=== PATIENT | male | born 1970 | race Caucasian/White ===

== ENCOUNTER 2019-11-23 13:26 | Emergency (ER) | payer BC, OTHER ==
[2019-11-23] MEDS ORDERED: Sodium Chloride 0.9% 2.5 ML Syringe FLUSH PRN (13:36)
[2019-11-23] MEDS ORDERED: Sodium Chloride 0.9% 10 ML Syringe FLUSH PRN (13:36)
[2019-11-23] MEDS ORDERED: Aspirin 81 MG Tab.Chew PO ONE (13:37)
--- NOTE | 2019-11-23 13:47 | EDM.PDOC ---
ED HPI GENERAL MEDICAL PROBLEM - General Chief Complaint: Chest Pain Stated Complaint: CHEST PAIN Time Seen by Provider: 11/23/19 13:36 - History of Present Illness INITIAL COMMENTS - FREE TEXT/NARRATIVE: History of present illness: 49-year-old male presenting with substernal chest pressure/discomfort and dyspnea 30 minutes prior to arrival. The patient was at rest, talking to his boss when he suddenly developed chest pain. No recent illness. No cough or fever. No leg pain or swelling. He has had some throat discomfort though no tightness or narrowing. He does report that he had to do a fasting overnight for a blood draw and then shortly before the symptoms started he had just eaten a sandwich and had something to drink. He had eaten all of those foods before and has never had any kind of reaction to it. Review of systems: As per history of present illness and below otherwise all systems reviewed and negative. Past medical history: As per history of present illness and as reviewed below otherwise noncontr ibutory. Type 2 diabetes. 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 Surgical history: As per history of present illness and as reviewed below otherwise noncontributory. Social history: No reported history of drug or alcohol abuse. No tobacco Family history: As per history of present illness and as reviewed below otherwise noncontributory. Physical exam: GEN: Mild to moderate distress due to pain, otherwise well appearing HEENT: Atraumatic, normocephalic, mucous membranes moist, no signs of airway compromise. Neck: supple, nontender, trachea midline. Lungs: No respiratory distress. Lungs are clear to auscultation bilaterally, no wheezes, rales or rhonchi Heart: RRR Abdomen: Soft, nondistended, nontender. Back: nontender Extremities: Atraumatic. Neurovascularly intact. No calf tenderness Neuro: Awake, alert, oriented. Neuro Exam nonfocal. Skin: warm, dry, no lesions Diagnostics: Labs, chest x-ray, EKG, CT scan Therapeutics: Aspirin MDM: Impression: [] Plan: [] Definitive disposition and diagnosis as appropriate pending reevaluation and review of above. - Related Data Allergies Allergy/AdvReac Type Severity Reaction Status Date / Time naproxen sodium [From Aleve] Allergy Hives Verified 11/23/19 13:48 Home Meds: Home Meds Lisinopril 1 tab PO BID 08/24/13 [History] metFORMIN [metFORMIN XR] 500 mg PO BIDM 08/24/13 [History] metFORMIN [Glucophage] 500 mg PO BID 03/12/15 [History] glipiZIDE [Glucotrol] 5 mg PO BID 08/17/15 [History] Non-Formulary Medication [NF Drug] 1 each PO DAILY 11/23/19 [History] Past Medical History HEENT History: Reports: None Cardiovascular History: Reports: Heart Failure, Hypertension Other Cardiovascular History: chf Respiratory History: Reports: None Gastrointestinal History: Reports: None Genitourinary History: Reports: None Musculoskeletal History: Reports: RA Neurological History: Reports: None Psychiatric History: Reports: None Endocrine/Metabolic History: Reports: Diabetes, Type II Hematologic History: Reports: None Other Immunologic History: rheumatoid arthritis Oncologic (Cancer) History: Reports: None Dermatologic History: Reports: None Other Dermatologic History: abcess neck - Past Surgical History Head Surgeries/Procedures: Reports: None HEENT Surgical History: Reports: None Cardiovascular Surgical History: Reports: None Respiratory Surgical History: Reports: None GI Surgical History: Reports: None Male Surgical History: Reports: None Neurological Surgical History: Reports: None Musculoskeletal Surgical History: Reports: None Dermatological Surgical History: Reports: None Social & Family History - Family History Family Medical History: Noncontributory ED ROS GENERAL - Review of Systems Review Of Systems: See Below (See HPI) ED EXAM, GENERAL - Physical Exam Exam: See Below (See HPI) EKG INTERPRETATION EKG Interpretation Comments: EKG performed at 1:28 PM, sinus rhythm, rate 74, abnormal R wave progression, very slight ST prominence over the inferior leads, less than 1 mm. EKG will be repeated. No STEMI. Repeat EKG at 1:34 PM, sinus rhythm, rate 69, unchanged early R wave progression, no ST prominence at this time. No STEMI. EKG performed after positive troponin resulted. Repeat EKG at 4:44 PM, sinus rhythm, rate 83, left atrial enlargement, no acute ischemia, no STEMI. Interpreted by me. Course - Vital Signs Text/Narrative:: Chest pain and dyspnea. Sudden onset just prior to arrival here. Will check labs, chest x-ray and troponin. Patient is a type II diabetic with cardiac risk factors. Heart score 5 Also has CML and currently on oral chemotherapy. 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 CT angio of the chest was ordered. Due to patient's symptoms and severity of presentation. EKG was performed on arrival and a repeat performed. No change. CT angios chest shows no pulmonary embolism or thoracic dissection or aneurysm. Patient's pain improved in the emergency department after aspirin and morphine administration. He did develop headache and some worsening again of his pain after nitro glycerin was given, therefore additional morphine will be given. However he is in no acute distress. Repeat troponin came back elevated at 0.335. Repeat EKG was performed which is unchanged from the prior 2 EKGs and shows no ischemic change or STEMI. Based on trending upward troponin, the patient will need to be transferred to a facility that has cardiology on-call and interventional cardiology capabilities. Therefore will be transferred to [facility], case discussed with ER physician who accepts. Last Recorded V/S: Last Vital Signs Temp Pulse 69 11/23/19 17:01 Resp 18 11/23/19 17:01 BP 133/76 11/23/19 17:01 Pulse Ox 94 L 11/23/19 17:01 - Orders/Labs/Meds Orders: Active Orders 24 hr Category Date Time Status Cardiac Monitoring [RC] . DIRECTED Care 11/23/19 13:36 Active EKG 12 Lead [EKG Documentation Completion] [RC] STAT Care 11/23/19 15:27 Active EKG Documentation Completion [RC] STAT Care 11/23/19 13:36 Active Nitroglycerin [Nitrostat] Med 11/23/19 15:27 Active 0.4 mg SL Q5M PRN Sodium Chloride 0.9% [Saline Flush] Med 11/23/19 13:36 Active 10 ml FLUSH ASDIRECTED PRN Sodium Chloride 0.9% [Saline Flush] Med 11/23/19 13:36 Active 2.5 ml FLUSH ASDIRECTED PRN Saline Lock Insert [OM.PC] Stat Oth 11/23/19 13:36 Ordered Medication Orders Nitroglycerin (Nitrostat) 0.4 mg SL Q5M PRN PRN Reason: Chest Pain Last Admin: 11/23/19 16:33 Dose: 0.4 mg Documented by: ESTRELLITA Sodium Chloride (Saline Flush) 10 ml FLUSH ASDIRECTED PRN PRN Reason: Keep Vein Open Sodium Chloride (Saline Flush) 2.5 ml FLUSH ASDIRECTED PRN PRN Reason: Keep Vein Open Labs: Laboratory Tests 11/23/19 11/23/19 11/23/19 Range/Units 13:34 13:34 13:34 WBC 11.31 H (4.0-11.0) K/uL RBC 5.97 H (4.50-5.90) M/uL Hgb 16.5 (13.0-17.0) g/dL Hct 48.7 (38.0-50.0) % MCV 81.6 (80.0-98.0) fL MCH 27.6 (27.0-32.0) pg MCHC 33.9 (31.0-37.0) g/dL RDW Std Deviation 41.5 (28.0-62.0) fl RDW Coeff of Wily 14 (11.0-15.0) % Plt Count 218 (150-400) K/uL MPV 10.40 (7.40-12.00) fL Neut % (Auto) 69.9 (48.0-80.0) % Lymph % (Auto) 20.6 (16.0-40.0) % [place] % (Auto) 6.5 (0.0-15.0) % Eos % (Auto) 2.2 (0.0-7.0) % Baso % (Auto) 0.8 (0.0-1.5) % Neut # (Auto) 7.9 H (1.4-5.7) K/uL Lymph # (Auto) 2.3 (0.6-2.4) K/uL [place] # (Auto) 0.7 (0.0-0.8) K/uL Eos # (Auto) 0.3 (0.0-0.7) K/uL Baso # (Auto) 0.1 (0.0-0.1) K/uL Nucleated RBC % 0.0 /100WBC Nucleated RBCs # 0 K/uL Sodium 136 (136-148) mmol/L Potassium 4.2 (3.5-5.1) mmol/L Chloride 99 (98-107) mmol/L Carbon Dioxide 27.2 (21.0-32.0) mmol/L BUN 17 (7.0-18.0) mg/dL Creatinine 1.1 (0.8-1.3) mg/dL Est Cr Clr Drug Dosing 102.38 mL/min Estimated GFR (MDRD) > 60.0 ml/min Glucose 419 H (74-106) mg/dL Calcium 9.6 (8.5-10.1) mg/dL Total Bilirubin 0.9 (0.2-1.0) mg/dL AST 40 H (15-37) IU/L ALT 70 H (14-63) IU/L Alkaline Phosphatase 110 (46-116) U/L Troponin I < 0.050 (0.000-0.056) ng/mL B-Natriuretic Peptide 31 (<100) PG/ML Total Protein 8.8 H (6.4-8.2) g/dL Albumin 4.2 (3.4-5.0) g/dL Globulin 4.6 H (2.6-4.0) g/dL Albumin/Globulin Ratio 0.9 (0.9-1.6) Lipase 217 (73-393) U/L SARS Virus RNA (PCR) (NEGATIVE) 11/23/19 11/23/19 Range/Units 15:56 16:32 WBC (4.0-11.0) K/uL RBC (4.50-5.90) M/uL Hgb (13.0-17.0) g/dL Hct (38.0-50.0) % MCV (80.0-98.0) fL MCH (27.0-32.0) pg MCHC (31.0-37.0) g/dL RDW Std Deviation (28.0-62.0) fl RDW Coeff of Wily (11.0-15.0) % Plt Count (150-400) K/uL MPV (7.40-12.00) fL Neut % (Auto) (48.0-80.0) % Lymph % (Auto) (16.0-40.0) % [place] % (Auto) (0.0-15.0) % Eos % (Auto) (0.0-7.0) % Baso % (Auto) (0.0-1.5) % Neut # (Auto) (1.4-5.7) K/uL Lymph # (Auto) (0.6-2.4) K/uL [place] # (Auto) (0.0-0.8) K/uL Eos # (Auto) (0.0-0.7) K/uL Baso # (Auto) (0.0-0.1) K/uL Nucleated RBC % /100WBC Nucleated RBCs # K/uL Sodium (136-148) mmol/L Potassium (3.5-5.1) mmol/L Chloride (98-107) mmol/L Carbon Dioxide (21.0-32.0) mmol/L BUN (7.0-18.0) mg/dL Creatinine (0.8-1.3) mg/dL Est Cr Clr Drug Dosing mL/min Estimated GFR (MDRD) ml/min Glucose (74-106) mg/dL Calcium (8.5-10.1) mg/dL Total Bilirubin (0.2-1.0) mg/dL AST (15-37) IU/L ALT (14-63) IU/L Alkaline Phosphatase (46-116) U/L Troponin I 0.335 H* (0.000-0.056) ng/mL B-Natriuretic Peptide (<100) PG/ML Total Protein (6.4-8.2) g/dL Albumin (3.4-5.0) g/dL Globulin (2.6-4.0) g/dL Albumin/Globulin Ratio (0.9-1.6) Lipase (73-393) U/L SARS Virus RNA (PCR) NEGATIVE (NEGATIVE) Meds: Medications Generic Name Dose Route Start Last Admin Trade Name Freq PRN Reason Stop Dose Admin Nitroglycerin 0.4 mg 11/23/19 15:27 11/23/19 16:33 Nitrostat SL 0.4 mg Q5M PRN Administration Chest Pain Sodium Chloride 10 ml 11/23/19 13:36 Saline Flush FLUSH ASDIRECTED PRN Keep Vein Open Sodium Chloride 2.5 ml 11/23/19 13:36 Saline Flush FLUSH ASDIRECTED PRN Keep Vein Open Discontinued Medications Generic Name Dose Route Start Last Admin Trade Name Freq PRN Reason Stop Dose Admin Aspirin 324 mg 11/23/19 13:37 11/23/19 13:42 Aspirin PO 11/23/19 13:38 324 mg ONETIME ONE Administration Iopamidol 75 ml 11/23/19 14:56 11/23/19 14:57 Isovue Multipack-370 (76%) IVPUSH 11/23/19 14:57 75 ml ONETIME STA Administration Morphine Sulfate 4 mg 11/23/19 15:27 11/23/19 16:01 Morphine IVPUSH 11/23/19 15:28 4 mg ONETIME ONE Administration Morphine Sulfate 4 mg 11/23/19 17:03 11/23/19 17:09 Morphine IVPUSH 11/23/19 17:04 4 mg ONETIME ONE Administration - Re-Assessments/Exams Free Text/Narrative Re-Assessment/Exam: 11/23/19 15:34 I reassessed the patient. He is resting comfortably and in no acute distress. He reports his chest discomfort is much improved now about a 2 or 3 out of 10. Discussed all lab results and diagnostic findings with the patient. No acute findings on his work-up here today to account for his pain, but given his cardiac risk factors and concerning presentation, I discussed my recommendations for admission to the hospital with the patient. Agrees with this plan. 11/23/19 16:45 Reassessed the patient. He is resting comfortably and in no acute distress. His pain is minimal at this time. Repeat troponin has returned and is now 0.33. As his troponin is trending upward, the patient cannot be admitted here in case of any potential ACS/need for cardiac intervention. I did discuss this with the patient. The nearest facility is [facility]. Discussed my recommendation for transfer there. The patient agrees with this plan. 11/23/19 16:59 Call placed to transfer center/ER physician at [facility]. Discussed with Dr. Potts in the emergency department, who accepts the case at 5:03 PM Departure - Departure Time of Disposition: 16:59 Disposition: DC/Tfer to Acute Hospital 02 Reason for Transfer *Q: Other (Troponin trending upward, may need cardiac intervention) Clinical Impression: NSTEMI (non-ST elevated myocardial infarction) Referrals: PCP,None [Primary Care Provider] - Forms: ED Department Discharge Sepsis Event Note (ED) - Focused Exam Vital Signs: Vital Signs Pulse Resp BP BP Pulse Ox 11/23/19 17:01 69 18 133/76 94 L 11/23/19 16:33 148/91 H 11/23/19 16:21 69 148/91 H 94 L 11/23/19 15:36 66 20 135/84 92 L 11/23/19 14:57 71 20 145/88 H 91 L 11/23/19 13:57 71 18 148/94 H 92 L 11/23/19 13:49 20 - My Orders Last 24 Hours: My Active Orders 11/23/19 13:36 Cardiac Monitoring [RC] . DIRECTED EKG Documentation Completion [RC] STAT Sodium Chloride 0.9% [Saline Flush] 10 ml FLUSH ASDIRECTED PRN Sodium Chloride 0.9% [Saline Flush] 2.5 ml FLUSH ASDIRECTED PRN Saline Lock Insert [OM.PC] Stat 11/23/19 15:27 EKG 12 Lead [EKG Documentation Completion] [RC] STAT Nitroglycerin [Nitrostat] 0.4 mg SL Q5M PRN - Assessment/Plan Last 24 Hours: My Active Orders 11/23/19 13:36 Cardiac Monitoring [RC] . DIRECTED EKG Documentation Completion [RC] STAT Sodium Chloride 0.9% [Saline Flush] 10 ml FLUSH ASDIRECTED PRN Sodium Chloride 0.9% [Saline Flush] 2.5 ml FLUSH ASDIRECTED PRN Saline Lock Insert [OM.PC] Stat 11/23/19 15:27 EKG 12 Lead [EKG Documentation Completion] [RC] STAT Nitroglycerin [Nitrostat] 0.4 mg SL Q5M PRN
[2019-11-23 14:11] LABS: BLOOD UREA NITROGEN,BUN 17 mg/dL (7.0-18.0); CARBON DIOXIDE,CO2 27.2 mmol/L (21.0-32.0); CHLORIDE,CL 99 mmol/L (98-107); GLUCOSE RANDOM 419 mg/dL (74-106); LIPASE 217 U/L (73-393); POTASSIUM,K 4.2 mmol/L (3.5-5.1); SODIUM,NA 136 mmol/L (136-148)
--- NOTE | 2019-11-23 14:32 | CR ---
Chest: Portable view of the chest was obtained. Comparison: Prior chest x-ray of 09/18/14. Heart size and mediastinum are normal. Lungs are clear with no acute parenchymal change. Bony structures are grossly intact. Impression: 1. Nothing acute is appreciated on portable chest x-ray. Diagnostic code #1 This report was dictated in MDT
[2019-11-23] MEDS ORDERED: Iopamidol 755 MG/ML 500 ML Multipack Bottle IVPUSH STA (14:56)
--- NOTE | 2019-11-23 15:20 | CT ---
CT chest Technique: Multiple axial sections through the chest were obtained. Intravenous contrast was utilized. Study performed as a pulmonary angiogram protocol. Comparison: Prior chest x-ray of 11/23/19. Findings: Pulmonary arteries are fairly well opacified. No filling defects are seen to indicate pulmonary embolism. Aorta shows no aneurysm. Mediastinum and hilar region show no adenopathy or mass. Mild coronary artery calcification is seen. Lungs are clear with no acute parenchymal change. No pleural effusions are seen. Bone window settings were reviewed which shows no acute osseous finding. Impression: 1. No findings of pulmonary emboli. 2. Nothing acute is appreciated on CT study of the chest. Diagnostic code #1 This report was dictated in MDT
[2019-11-23] MEDS ORDERED: Nitroglycerin 0.4 MG Tab.SL SL PRN (15:27)
[2019-11-23] MEDS ORDERED: Morphine 4 MG/ML Syringe IVPUSH ONE ×2 (15:27→17:03)
[2019-11-23 17:12] VITALS: PULSE 69
[2019-11-23 18:24] VITALS: BP 133/76
== END 2019-11-23 17:30 ==
LOC: MW.ED 13:26
DX: I21.4 Non-ST elevation (NSTEMI) myocardial infarction (principal); I11.0 Hypertensive heart disease with heart failure; I50.9 Heart failure, unspecified; E11.9 Type 2 diabetes mellitus without complications; Z88.8 Allergy status to other drugs, medicaments and biological substances; Z79.84 Long term (current) use of oral hypoglycemic drugs; Z79.899 Other long term (current) drug therapy; Z20.828 Contact with and (suspected) exposure to other viral communicable diseases
CPT/HCPCS: 36415; 71045; 71275; 80053; 83690; 83880; 84484; 85025; 87635; 93005; 96374; 96376; 99285; A9270; J2270; Q9967; 99284; U0002

== ENCOUNTER 2020-06-01 14:50 | Emergency (ER) | payer OTHER, BC ==
[2020-06-01] MEDS ORDERED: Sodium Chloride 0.9% 10 ML Syringe FLUSH PRN (14:51)
[2020-06-01] MEDS ORDERED: Sodium Chloride 0.9% 2.5 ML Syringe FLUSH PRN (14:51)
--- NOTE | 2020-06-01 15:10 | EDM.PDOC ---
ED HPI GENERAL MEDICAL PROBLEM - General Stated Complaint: [facility] Time Seen by Provider: 06/01/20 14:51 Source of Information: Reports: Patient History Limitations: Reports: No Limitations - History of Present Illness INITIAL COMMENTS - FREE TEXT/NARRATIVE: HISTORY AND PHYSICAL: History of present illness: Patient is a 50-year-old male who presents to the emergency room with complaints of right lower quadrant abdominal pain. [facility] for right-sided flank pain which ultimately ended up being a shingles flare. He did have a CT last week, which was unremarkable. He was placed on valacyclovir for the shingles, he is taking as directed. For the past 24 hours he has had right lower quadrant abdominal pain with nausea. Patient denies any fever, chills, headache, change in vision, syncope or near syncope. Denies any chest pain, back pain, shortness of breath or cough. Denies any vomiting, diarrhea, constipation or dysuria. Has not noted any blood in urine or stool. Denies any testicular pain, redness, or swelling. Patient has been eating and drinking appropriately. Review of systems: As per history of present illness and below otherwise all systems reviewed and negative. Past medical history: As per history of present illness and as reviewed below otherwise noncontributory. Surgical history: As per history of present illness and as reviewed below otherwise noncontributory. Social history: See social history for further information Family history: As per history of present illness and as reviewed below otherwise noncontribu tory. Physical exam: General: Well developed and well nourished 50-year-old male. Alert and orientated x 3. Nontoxic in appearance and in no acute distress. Vital signs are stable and have been reviewed by me. Nursing notes were reviewed. HEENT: Atraumatic, normocephalic, pupils equal and reactive bilaterally, negative for conjunctival pallor or scleral icterus, mucous membranes moist, TMs normal bilaterally, throat clear, neck supple, nontender, trachea midline. No drooling or trismus noted. No meningeal signs. No hot potato voice noted. Lungs: Clear to auscultation bilaterally. No wheezes, rales, or rhonchi. Chest nontender. Normal work of breathing, no accessory muscles used. Heart: S1S2, regular rate and rhythm without overt murmur, gallops, or rubs. No JVD. No peripheral edema Abdomen: Soft, nondistended, right lower quadrant tenderness. No rebound tenderness. Normoactive bowel sounds. Negative for masses or costovertebral tenderness. Skin: Herpetic shingles rash to the right flank. Remaining skin is intact, warm, dry. Hematologic: No petechiae or purpra. Mucosa appropriate color and normal nail bed color and refill. Extremities: Atraumatic, moves all extremities per self without difficulty or deficits, negative for cords or calf pain. Neurovascular unremarkable. Neuro: Awake, alert, oriented. Cranial nerves II through XII unremarkable. Cerebellum unremarkable. Motor and sensory unremarkable throughout. Exam nonfocal. Psychiatric: Mood and affect are appropriate. Normal thought process. Answering questions appropriately. Notes: *This patient was seen and evaluated during the 2019 SARS-CoV-2 novel coronavirus pandemic period. Community viral transmission is ongoing at time of this encounter and the emergency department is operating under pandemic response procedures. Patient declines wanting anything for pain or nausea at this time. He is agreeable to lab work and a CT scan to rule out appendicitis. Patients glucose is 793 today. Noted that his hemoglobin A1C on 05/13/20 was 10.2 - he is only on oral DM medications and Trulicity injection once a week. States his blood sugars at home have been running 425's but he hasn't been able to take his oral medications since he has had "stomach issues and shingles" over the past few weeks. Reports his stomach has been upset and he hasn't been feeling well enough to take all his medications. No anion gap to suggest DKA. Will give subQ insulin and continue to monitor. He is requesting something for the itching and pain of his shingles rash. Lidoderm patch and Benadryl given here. Sodium is 127, chloride 93. I have given him a liter of fluids. CT shows bilateral lower lobe pneumonitis in a pattern suspicious for COVID infection. (Patient had COVID-19 in April 2020). Remaining CT is unremarkable abdomen and pelvis. No finding to explain right lower quadrant pain. Specifically the GI tract and appendix are normal. I have talked with the patient about today's findings, in addition to providing specific details for plan of care. We did discuss keeping him for observation for better control of his hyperglycemia/type 2 diabetes and give him IV fluids. He states he was sent her for CT scan to r/o appendicitis and he would prefer to follow-up with his primary care provider as this has been an ongoing issue (hyperglycemia) and is working close with his PCP to find a regimen that works best for him. We did discuss risk of unmanaged/untreated hyperglycemia. Reassessment at the time of disposition demonstrates that the patient is in no acute distress. Patient prefers to be discharged home rather than receiving additional insulin and fluids. His vital signs are stable. He is stable for discharge, counseling was provided and we discussed in great detail signs and symptoms that would prompt them to return to the Emergency Department. Medication, follow up and supportive care measures were reviewed and discussed. Voices understanding and is agreeable to plan of care. Denies any further questions or concerns at this time. Diagnostics: CBC, CMP, UA, CT abdomen and pelvis Therapeutics: IV fluids, Insulin 10units SubQ Prescription: Lidocaine patch x 5 Impression: Abdominal pain, right lower quadrant Uncontrolled DM, hyperglycemia Shingles Plan: 1. Your lab work today was unremarkable with the exception that your blood sugar is currently not managed by oral diabetic medications alone. Today you declined further evaluation/care of this and prefer to follow-up with your primary care provider [facility]. Please see them within the next week for further management of this. 2. You can alternate Tylenol and ibuprofen as needed for pain and fever management. Continue taking your antiviral medication as directed. You can take Benadryl [id number] for the itching. I have prescribed the lidocaine patch to help with pain, he can changes every 24 hours. 3. We encourage you to follow up with your primary care provider and/or recommended specialist in the next few days for re-evaluation and further care/management. 4. If your symptoms should worsen, new symptoms develop or any of the signs and symptoms we discussed should arise please return to the emergency room or call 911 (if needed). Definitive disposition and diagnosis as appropriate pending reevaluation and review of above. right abdominal/back Pain Score (Numeric/FACES): 9 - Related Data Allergies Allergy/AdvReac Type Severity Reaction Status Date / Time naproxen sodium [From Aleve] Allergy Hives Verified 06/01/20 15:06 Home Meds: Home Meds metFORMIN [Glucophage] 1,000 mg PO BID 03/12/15 [History] Cetirizine [ZyrTEC] 10 mg PO DAILY 06/01/20 [History] Cholecalciferol (Vitamin D3) [Vitamin D] 2,000 unit PO DAILY 06/01/20 [History] Dulaglutide [Trulicity] 1.5 mg SQ WEEKLY 06/01/20 [History] Folic Acid 1 mg PO QAM 06/01/20 [History] Furosemide 40 mg PO QAM 06/01/20 [History] Glucosam/Chond-MSM 2/C/D3/Wil [Nhmyhtlxrf-Gcdjlzmagsc-JYL] 1 each PO DAILY 06/01/20 [History] Methotrexate 6 tab PO WEEKLY 06/01/20 [History] Multivitamin 1 each PO DAILY 06/01/20 [History] Nilotinib HCl [Tasigna] 400 mg PO BID 06/01/20 [History] Ticagrelor [Brilinta] 90 mg PO BID 06/01/20 [History] atorvaSTATin [Lipitor] 20 mg PO BEDTIME 06/01/20 [History] glyBURIDE [Glyburide] 10 mg PO BID 06/01/20 [History] lisinopriL [Lisinopril] 10 mg PO QAM 06/01/20 [History] Past Medical History HEENT History: Reports: None Cardiovascular History: Reports: Heart Failure, Hypertension Other Cardiovascular History: chf Respiratory History: Reports: None Gastrointestinal History: Reports: None Genitourinary History: Reports: None Musculoskeletal History: Reports: RA Neurological History: Reports: None Psychiatric History: Reports: None Endocrine/Metabolic History: Reports: Diabetes, Type II Hematologic History: Reports: None Other Immunologic History: rheumatoid arthritis Oncologic (Cancer) History: Reports: None Dermatologic History: Reports: None Other Dermatologic History: abcess neck - Infectious Disease History Infectious Disease History: Reports: Chicken Pox - Past Surgical History Head Surgeries/Procedures: Reports: None HEENT Surgical History: Reports: None Cardiovascular Surgical History: Reports: None Respiratory Surgical History: Reports: None GI Surgical History: Reports: None Male Surgical History: Reports: None Neurological Surgical History: Reports: None Musculoskeletal Surgical History: Reports: None Dermatological Surgical History: Reports: None Social & Family History - Family History Family Medical History: No Pertinent Family History - Caffeine Use Caffeine Use: Reports: Soda ED ROS GENERAL - Review of Systems Review Of Systems: Comprehensive ROS is negative, except as noted in HPI. ED EXAM, GI/ABD - Physical Exam Exam: See Below (See dictation) Course - Vital Signs Last Recorded V/S: Last Vital Signs Temp 97.0 F 06/01/20 15:09 Pulse 87 06/01/20 15:09 Resp 18 06/01/20 15:09 BP 154/92 H 06/01/20 15:09 Pulse Ox 95 06/01/20 15:09 - Orders/Labs/Meds Orders: Active Orders 24 hr Category Date Time Status Blood Glucose Check, Bedside [RC] ONETIME Care 06/01/20 16:16 Active Dextrose 50% in Water Med 06/01/20 16:16 Active 50 ml IV ASDIRECTED PRN Glucagon,Human Recombinant [GlucaGen] Med 06/01/20 16:16 Active 1 mg IM ASDIRECTED PRN Sodium Chloride 0.9% [Saline Flush] Med 06/01/20 14:51 Active 10 ml FLUSH ASDIRECTED PRN Sodium Chloride 0.9% [Saline Flush] Med 06/01/20 14:51 Active 2.5 ml FLUSH ASDIRECTED PRN Saline Lock Insert [OM.PC] Stat Oth 06/01/20 14:51 Ordered Medication Orders Dextrose/Water (Dextrose 50% In Water) 50 ml IV ASDIRECTED PRN PRN Reason: Hypoglycemia Glucagon (Glucagen) 1 mg IM ASDIRECTED PRN PRN Reason: Hypoglycemia Sodium Chloride (Saline Flush) 10 ml FLUSH ASDIRECTED PRN PRN Reason: Keep Vein Open Last Admin: 06/01/20 15:15 Dose: 10 ml Documented by: [email or web address] Sodium Chloride (Saline Flush) 2.5 ml FLUSH ASDIRECTED PRN PRN Reason: Keep Vein Open Last Admin: 06/01/20 15:16 Dose: 2.5 ml Documented by: [email or web address] Labs: Laboratory Tests 06/01/20 06/01/20 06/01/20 Range/Units 15:04 15:17 15:17 WBC 8.06 (4.0-11.0) K/uL RBC 5.82 (4.50-5.90) M/uL Hgb 16.3 (13.0-17.0) g/dL Hct 50.4 H (38.0-50.0) % MCV 86.6 (80.0-98.0) fL MCH 28.0 (27.0-32.0) pg MCHC 32.3 (31.0-37.0) g/dL RDW Std Deviation 46.3 (28.0-62.0) fl RDW Coeff of Wily 15 (11.0-15.0) % Plt Count 231 (150-400) K/uL MPV 10.70 (7.40-12.00) fL Neut % (Auto) 63.6 (48.0-80.0) % Lymph % (Auto) 26.1 (16.0-40.0) % Quay % (Auto) 6.6 (0.0-15.0) % Eos % (Auto) 2.2 (0.0-7.0) % Baso % (Auto) 1.5 (0.0-1.5) % Neut # (Auto) 5.1 (1.4-5.7) K/uL Lymph # (Auto) 2.1 (0.6-2.4) K/uL Quay # (Auto) 0.5 (0.0-0.8) K/uL Eos # (Auto) 0.2 (0.0-0.7) K/uL Baso # (Auto) 0.1 (0.0-0.1) K/uL Nucleated RBC % 0.0 /100WBC Nucleated RBCs # 0 K/uL Sodium 127 L (136-148) mmol/L Potassium 5.1 (3.5-5.1) mmol/L Chloride 93 L (98-107) mmol/L Carbon Dioxide 26.3 (21.0-32.0) mmol/L BUN 16 (7.0-18.0) mg/dL Creatinine 1.5 H (0.8-1.3) mg/dL Est Cr Clr Drug Dosing 74.25 mL/min Estimated GFR (MDRD) 49.5 ml/min Glucose 793 H* (74-106) mg/dL POC Glucose (60-110) mg/dL Calcium 9.5 (8.5-10.1) mg/dL Total Bilirubin 1.0 (0.2-1.0) mg/dL AST 79 H (15-37) IU/L ALT 181 H (14-63) IU/L Alkaline Phosphatase 228 H (46-116) U/L Total Protein 8.8 H (6.4-8.2) g/dL Albumin 3.7 (3.4-5.0) g/dL Globulin 5.1 H (2.6-4.0) g/dL Albumin/Globulin Ratio 0.7 L (0.9-1.6) Urine Color YELLOW Urine Appearance CLEAR Urine pH 5.5 (5.0-8.0) Ur Specific [place] <= 1.005 (1.001-1.035) Urine Protein NEGATIVE (NEGATIVE) mg/dL Urine Glucose (UA) >=1000 (NEGATIVE) mg/dL Urine Ketones NEGATIVE (NEGATIVE) mg/dL Urine Occult Blood NEGATIVE (NEGATIVE) Urine Nitrite NEGATIVE (NEGATIVE) Urine Bilirubin NEGATIVE (NEGATIVE) Urine Urobilinogen 1.0 (<2.0) EU/dL Ur Leukocyte Esterase NEGATIVE (NEGATIVE) 06/01/20 06/01/20 Range/Units 16:32 17:10 WBC (4.0-11.0) K/uL RBC (4.50-5.90) M/uL Hgb (13.0-17.0) g/dL Hct (38.0-50.0) % MCV (80.0-98.0) fL MCH (27.0-32.0) pg MCHC (31.0-37.0) g/dL RDW Std Deviation (28.0-62.0) fl RDW Coeff of Wily (11.0-15.0) % Plt Count (150-400) K/uL MPV (7.40-12.00) fL Neut % (Auto) (48.0-80.0) % Lymph % (Auto) (16.0-40.0) % Quay % (Auto) (0.0-15.0) % Eos % (Auto) (0.0-7.0) % Baso % (Auto) (0.0-1.5) % Neut # (Auto) (1.4-5.7) K/uL Lymph # (Auto) (0.6-2.4) K/uL Quay # (Auto) (0.0-0.8) K/uL Eos # (Auto) (0.0-0.7) K/uL Baso # (Auto) (0.0-0.1) K/uL Nucleated RBC % /100WBC Nucleated RBCs # K/uL Sodium (136-148) mmol/L Potassium (3.5-5.1) mmol/L Chloride (98-107) mmol/L Carbon Dioxide (21.0-32.0) mmol/L BUN (7.0-18.0) mg/dL Creatinine (0.8-1.3) mg/dL Est Cr Clr Drug Dosing mL/min Estimated GFR (MDRD) ml/min Glucose (74-106) mg/dL POC Glucose > 500 H > 500 H (60-110) mg/dL Calcium (8.5-10.1) mg/dL Total Bilirubin (0.2-1.0) mg/dL AST (15-37) IU/L ALT (14-63) IU/L Alkaline Phosphatase (46-116) U/L Total Protein (6.4-8.2) g/dL Albumin (3.4-5.0) g/dL Globulin (2.6-4.0) g/dL Albumin/Globulin Ratio (0.9-1.6) Urine Color Urine Appearance Urine pH (5.0-8.0) Ur Specific [place] (1.001-1.035) Urine Protein (NEGATIVE) mg/dL Urine Glucose (UA) (NEGATIVE) mg/dL Urine Ketones (NEGATIVE) mg/dL Urine Occult Blood (NEGATIVE) Urine Nitrite (NEGATIVE) Urine Bilirubin (NEGATIVE) Urine Urobilinogen (<2.0) EU/dL Ur Leukocyte Esterase (NEGATIVE) Meds: Medications Generic Name Dose Route Start Last Admin Trade Name Freq PRN Reason Stop Dose Admin Dextrose/Water 50 ml 06/01/20 16:16 Dextrose 50% In Water IV ASDIRECTED PRN Hypoglycemia Glucagon 1 mg 06/01/20 16:16 Glucagen IM ASDIRECTED PRN Hypoglycemia Sodium Chloride 10 ml 06/01/20 14:51 06/01/20 15:15 Saline Flush FLUSH 10 ml ASDIRECTED PRN Administration Keep Vein Open Sodium Chloride 2.5 ml 06/01/20 14:51 06/01/20 15:16 Saline Flush FLUSH 2.5 ml ASDIRECTED PRN Administration Keep Vein Open Discontinued Medications Generic Name Dose Route Start Last Admin Trade Name Freq PRN Reason Stop Dose Admin Diphenhydramine HCl 50 mg 06/01/20 17:02 06/01/20 17:14 Benadryl PO 06/01/20 17:03 50 mg ONETIME ONE Administration Hydralazine HCl 25 mg 06/01/20 17:00 06/01/20 17:33 Apresoline PO 06/01/20 17:01 Not Given NOW STA Sodium Chloride 1,000 mls @ 999 mls/hr 06/01/20 15:57 06/01/20 16:32 Normal Saline IV 06/01/20 16:57 999 mls/hr STAT ONE Administration Insulin Human Regular 10 unit 06/01/20 16:16 06/01/20 16:33 Novolin R SUBCUT 06/01/20 16:17 10 units ONETIME ONE Administration Protocol Iopamidol 100 ml 06/01/20 16:23 06/01/20 17:07 Isovue Multipack-370 (76%) IVPUSH 06/01/20 16:24 100 ml ONETIME STA Administration Lidocaine 700 mg 06/01/20 17:00 06/01/20 17:14 Lidoderm 5% TRDERM 06/01/20 17:01 700 mg ONETIME ONE Administration Departure - Departure Time of Disposition: 17:35 Disposition: Home, Self-Care 01 Clinical Impression: Abdominal pain Qualifiers: Abdominal location: right lower quadrant Qualified Code(s): R10.31 - Right lower quadrant pain Shingles Qualifiers: Herpes zoster complications: without complications Qualified Code(s): B02.9 - Zoster without complications Uncontrolled diabetes mellitus Qualifiers: Diabetes mellitus type: type 2 Glycemic state: with hyperglycemia Qualified Code(s): E11.65 - Type 2 diabetes mellitus with hyperglycemia - Discharge Information Referrals: Jc Salcedo NP [Primary Care Provider] - Additional Instructions: The following information is given to patients seen in the emergency department who are being discharged to home. This information is to outline your options for follow-up care. We provide all patients seen in our emergency department with a follow-up referral. The need for follow-up, as well as the timing and circumstances, are variable depending upon the specifics of your emergency department visit. If you don't have a primary care physician on staff, we will provide you with a referral. We always advise you to contact your personal physician following an emergency department visit to inform them of the circumstance of the visit and for follow-up with them and/or the need for any referrals to a consulting specialist. The emergency department will also refer you to a specialist when appropriate. This referral assures that you have the opportunity for follow-up care with a specialist. All of these measure are taken in an effort to provide you with optimal care, which includes your follow-up. Under all circumstances we always encourage you to contact your private physician who remains a resource for coordinating your care. When calling for follow-up care, please make the office aware that this follow-up is from your recent emergency room visit. If for any reason you are refused follow-up, please contact the [facility] Emergency Department at and asked to speak to the emergency department charge nurse. [facility] [address] [place] [id number] [place] [address] Thank you for choosing the [facility] emergency department in [place] for your medical needs today. It was a pleasure caring for you. Today you were seen in the emergency department for evaluation of right lower quadrant abdominal pain. 1. Your lab work today was unremarkable with the exception that your blood sugar is currently not managed by oral diabetic medications alone. Today you declined further evaluation/care of this and prefer to follow-up with your primary care provider at the [facility]. Please see them within the next week for further management of this. 2. You can alternate Tylenol and ibuprofen as needed for pain and fever management. Continue taking your antiviral medication as directed. You can take Benadryl [id number] for the itching. I have prescribed the lidocaine patch to help with pain, he can changes every 24 hours. 3. We encourage you to follow up with your primary care provider and/or recommended specialist in the next few days for re-evaluation and further care/management. 4. If your symptoms should worsen, new symptoms develop or any of the signs and symptoms we discussed should arise please return to the emergency room or call [phone] (if needed). Sepsis Event Note (ED) - Focused Exam Vital Signs: Vital Signs Temp Pulse Resp BP Pulse Ox 06/01/20 15:09 97.0 F 87 18 154/92 H 95 - My Orders Last 24 Hours: My Active Orders 06/01/20 14:51 Sodium Chloride 0.9% [Saline Flush] 10 ml FLUSH ASDIRECTED PRN Sodium Chloride 0.9% [Saline Flush] 2.5 ml FLUSH ASDIRECTED PRN Saline Lock Insert [OM.PC] Stat 06/01/20 16:16 Blood Glucose Check, Bedside [RC] ONETIME Dextrose 50% in Water 50 ml IV ASDIRECTED PRN Glucagon,Human Recombinant [GlucaGen] 1 mg IM ASDIRECTED PRN - Assessment/Plan Last 24 Hours: My Active Orders 06/01/20 14:51 Sodium Chloride 0.9% [Saline Flush] 10 ml FLUSH ASDIRECTED PRN Sodium Chloride 0.9% [Saline Flush] 2.5 ml FLUSH ASDIRECTED PRN Saline Lock Insert [OM.PC] Stat 06/01/20 16:16 Blood Glucose Check, Bedside [RC] ONETIME Dextrose 50% in Water 50 ml IV ASDIRECTED PRN Glucagon,Human Recombinant [GlucaGen] 1 mg IM ASDIRECTED PRN
[2020-06-01 15:46] LABS: CARBON DIOXIDE,CO2 26.3 mmol/L (21.0-32.0); POTASSIUM,K 5.1 mmol/L (3.5-5.1)
[2020-06-01] MEDS ORDERED: Sodium Chloride 0.9% 1,000 ML IV ONE (15:57)
[2020-06-01] MEDS ORDERED: Insulin Regular, Human 100 Units/ML 10 ML Vial SUBCUT ONE (16:16)
[2020-06-01] MEDS ORDERED: Glucagon,Human Recombinant 1 MG Vial IM PRN (16:16)
[2020-06-01] MEDS ORDERED: 50% Dextrose in Water 50 ML Syringe IV PRN (16:16)
[2020-06-01] MEDS ORDERED: Iopamidol 755 MG/ML 500 ML Multipack Bottle IVPUSH STA (16:23)
--- NOTE | 2020-06-01 16:53 | CT ---
INDICATION: Right lower quadrant abdomen pain. TECHNIQUE: CT abdomen and pelvis acquired with 100 cc Isovue 370 IV contrast. COMPARISON: None. FINDINGS: Lower chest: There are patchy ground-glass infiltrates in both lung bases. Liver: Unremarkable. Normal in size and attenuation. No masses. Gallbladder and bile ducts: Unremarkable. No stones or inflammation. No biliary dilatation. Pancreas: Unremarkable. No mass or inflammation. Spleen: Unremarkable. Normal in size. No masses. Adrenal glands: Unremarkable. No nodules. Kidneys: Unremarkable. No masses, stones, or hydronephrosis. GI tract: Unremarkable. Normal in caliber. No sign of mass or inflammation. Normal appendix. Vasculature: Unremarkable. Mesenteric arteries are patent. Lymph nodes: No lymphadenopathy. Omentum/Peritoneum/Abdominal Wall: Unremarkable. No sign of mass or infiltration. No free air or significant free fluid. Pelvis: Unremarkable. Bones: Unremarkable for age. IMPRESSION: 1. Bilateral lower lobe pneumonitis in a pattern suspicious for COVID infection. 2. Unremarkable abdomen and pelvis. No finding to explain right lower quadrant pain. Specifically the GI tract and appendix are normal. Please note that all CT scans at this facility use dose modulation, iterative reconstruction, and/or weight-based dosing when appropriate to reduce radiation dose to as low as reasonably achievable. Dictated by Carlos Eduardo Bowman MD @ Jun 01 2020 4:43PM Signed by Dr. Carlos Eduardo Bowman @ Jun 01 2020 4:53PM
[2020-06-01] MEDS ORDERED: Lidocaine 5% 700 MG Patch TRDERM ONE (17:00)
[2020-06-01] MEDS ORDERED: hydrALAZINE 25 MG Tab PO STA (17:00)
[2020-06-01] MEDS ORDERED: diphenhydrAMINE 50 MG Cap PO ONE (17:02)
[2020-06-01 17:46] VITALS: BP 131/81; PULSE 71
== END 2020-06-01 17:46 | disposition home or self-care (01) ==
LOC: MW.ED 14:50
DX: R10.31 Right lower quadrant pain (principal); E11.65 Type 2 diabetes mellitus with hyperglycemia; B02.9 Zoster without complications; I11.0 Hypertensive heart disease with heart failure; I50.9 Heart failure, unspecified; Z88.8 Allergy status to other drugs, medicaments and biological substances; Z79.899 Other long term (current) drug therapy
CPT/HCPCS: 36415; 74177; 80053; 81003; 82962; 85025; 99284; A9270; J7030; Q9967; J1815-GY

== ENCOUNTER 2020-06-22 15:04 | Observation (INO) | payer OTHER, BC ==
--- NOTE | 2020-06-22 15:22 | EDM.PDOC ---
ED HPI GENERAL MEDICAL PROBLEM - General Chief Complaint: Lower Extremity Injury/Pain Stated Complaint: [facility] Time Seen by Provider: 06/22/20 15:04 Source of Information: Reports: Patient History Limitations: Reports: No Limitations - History of Present Illness INITIAL COMMENTS - FREE TEXT/NARRATIVE: HISTORY AND PHYSICAL: History of present illness: Patient is a 50-year-old male who presents to the emergency room with complaints of a foot sore on the left second toe with pain and swelling x 1 week. 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 Since then he has had some pain, redness and swelling. He initially was seen at the [place] who recommended he come to the emergency room for evaluation (lab work, x-ray and possible IV abx). Patient denies any fever, chills, headache, change in vision, syncope or near syncope. Denies any chest pain, back pain, shortness of breath or cough. Denies any abdominal pain, nausea, vomiting, diarrhea, constipation or dysuria. Patient has been eating and drinking appropriately. Patient has poorly controlled diabetes, takes Trulicity and Metformin. Last hemoglobin A1c on 05/26 was 10.2. Review of systems: As per history of present illness and below otherwise all systems reviewed and negative. Past medical history: As per history of present illness and as reviewed below otherwise noncontributory. Surgical history: As per history of present illness and as reviewed below otherwise noncontributory. Social history: See social history for further information Family history: As per history of present illness and as reviewed below otherwise noncontributory. Physical exam: General: Well developed and well nourished 50 year old male. Alert and orientated x 3. Nontoxic in appearance and in no acute distress. Vital signs are stable and have been reviewed by me. Nursing notes were reviewed. Lungs: Clear to auscultation bilaterally. No wheezes, rales, or rhonchi. Chest nontender. Normal work of breathing, no accessory muscles used. Heart: S1S2, regular rate and rhythm without overt murmur, gallops, or rubs. No JVD. No peripheral edema Abdomen: Soft, nondistended, nontender. Normoactive bowel sounds. Negative for masses or costovertebral tenderness. Skin: Medial aspect of left great toe shows a 5 cm X 8 mm lesion w/ surrounding pallor. Transverse, 2.5 cm X 8 mm lesion w/ surrounding pallor on distal, plantar aspect of 2nd left toe. The second toe appears cellulitic with redness extending to base of toe. Compartments soft. Remaining skin is intact, warm, dry. No rashes noted. Hematologic: No petechiae or purpra. Mucosa appropriate color and normal nail bed color and refill. Extremities: Moves all extremities per self without difficulty or deficits, negative for cords or calf pain. Slight decrease in sensation of distal plantar aspect of left foot, otherwise neurovascular unremarkable. Neuro: Awake, alert, oriented. Cranial nerves II through XII unremarkable. Cerebellum unremarkable. Motor and sensory unremarkable throughout. Exam nonfocal. Psychiatric: Mood and affect are appropriate. Normal thought process. Answering questions appropriately. Notes: *This patient was seen and evaluated during the 2019 SARS-CoV-2 novel coronavirus pandemic period. Community viral transmission is ongoing at time of this encounter and the emergency department is operating under pandemic response procedures. Wound care was provided with chlorhexidine and wound wash. Area thoroughly dried. Patient is agreeable to lab work, x-ray with possible admission. X-ray shows no fracture, dislocation or any other acute osseous abnormality. Patient does have a leukocytosis. Today's blood sugar is 344, he states his sugars have been running 200-300 which is better from the last month when he was evaluated. He is agreeable to insulin at this time although does state he would not want this long-term. Repeat glucose was 280 - will use LOW sliding scale. I have talked with the patient about today's findings, in addition to providing specific details for plan of care. Reassessment at the time of disposition demonstrates that the patient is in no acute distress. Due to patient's unmanaged blood sugars, physical exam and need for antibiotics we will keep for observation. Dr. Peters, hospitalist on-call, was agreeable to keeping this patient for further care and management. Vancomycin running at this time. Diagnostics: CBC, CMP, LT Foot x-ray Therapeutics: NS @100mls/hr, Vancomycin, Regular Insulin Impression: Diabetic foot infection Cellulitis Plan: Observation admission for IV antibiotics Definitive disposition and diagnosis as appropriate pending reevaluation and review of above. left foot Pain Score (Numeric/FACES): 6 - Related Data Allergies Allergy/AdvReac Type Severity Reaction Status Date / Time naproxen sodium [From Aleve] Allergy Hives Verified 06/22/20 15:17 Home Meds: Home Meds metFORMIN [Glucophage] 1,000 mg PO BID 03/12/15 [History] Cetirizine [ZyrTEC] 10 mg PO DAILY 06/01/20 [History] Cholecalciferol (Vitamin D3) [Vitamin D] 2,000 unit PO DAILY 06/01/20 [History] Dulaglutide [Trulicity] 1.5 mg SQ WEEKLY 06/01/20 [History] Folic Acid 1 mg PO QAM 06/01/20 [History] Furosemide 40 mg PO QAM 06/01/20 [History] Glucosam/Chond-MSM 2/C/D3/Wil [Dqqofzplku-Raerwyixmzh-EIM] 1 each PO DAILY 06/01/20 [History] Methotrexate 6 tab PO WEEKLY 06/01/20 [History] Multivitamin 1 each PO DAILY 06/01/20 [History] Nilotinib HCl [Tasigna] 400 mg PO BID 06/01/20 [History] Ticagrelor [Brilinta] 90 mg PO BID 06/01/20 [History] atorvaSTATin [Lipitor] 20 mg PO BEDTIME 06/01/20 [History] glyBURIDE [Glyburide] 10 mg PO BID 06/01/20 [History] lisinopriL [Lisinopril] 10 mg PO QAM 06/01/20 [History] Past Medical History HEENT History: Reports: None Cardiovascular History: Reports: Heart Failure, Hypertension, [place], Stents Other Cardiovascular History: chf Respiratory History: Reports: None Gastrointestinal History: Reports: None Genitourinary History: Reports: None Musculoskeletal History: Reports: RA Neurological History: Reports: None Psychiatric History: Reports: None Endocrine/Metabolic History: Reports: Diabetes, Type II Hematologic History: Reports: None Other Immunologic History: rheumatoid arthritis Oncologic (Cancer) History: Reports: Leukemia, Other (See Below) Other Oncologic History: CML Dermatologic History: Reports: None Other Dermatologic History: abcess neck. Shingles - Infectious Disease History Infectious Disease History: Reports: Chicken Pox, Novel Coronavirus, Shingles - Past Surgical History Head Surgeries/Procedures: Reports: None HEENT Surgical History: Reports: None Cardiovascular Surgical History: Reports: None Respiratory Surgical History: Reports: None GI Surgical History: Reports: None Male Surgical History: Reports: None Neurological Surgical History: Reports: None Musculoskeletal Surgical History: Reports: None Dermatological Surgical History: Reports: None Social & Family History - Family History Family Medical History: No Pertinent Family History - Caffeine Use Caffeine Use: Reports: None - Recreational Drug Use Recreational Drug Use: No Review of Systems - Review of Systems Review Of Systems: Comprehensive ROS is negative, except as noted in HPI. ED EXAM, GENERAL - Physical Exam Exam: See Below (See dictation) Course - Vital Signs Last Recorded V/S: Last Vital Signs Temp 98 F 06/22/20 17:58 Pulse 71 06/22/20 17:58 Resp 16 06/22/20 17:58 BP 123/77 06/22/20 17:58 Pulse Ox 99 06/22/20 17:58 - Orders/Labs/Meds Orders: Active Orders 24 hr Category Date Time Status Admission Status [Patient Status] [ADT] Stat ADT 06/22/20 16:42 Active Blood Glucose Check, Bedside [RC] TIDAC Care 06/22/20 17:29 Active Communication Order [RC] STAT Care 06/22/20 15:25 Active Oxygen Therapy [RC] PRN Care 06/22/20 17:27 Active Up ad Margot [RC] ASDIRECTED Care 06/22/20 17:27 Active VTE/DVT Education [RC] PER UNIT ROUTINE Care 06/22/20 17:27 Active Vital Signs [RC] Q4H Care 06/22/20 17:27 Active Consult to Wound Care Services [CONS] Routine Cons 06/22/20 17:30 Active [employer] Diet [DIET] Diet 06/22/20 Dinner Active Fluid Restriction [DIET] Diet 06/22/20 Dinner Active BASIC METABOLIC PANEL,BMP [CHEM] AM Lab 06/23/20 05:11 Ordered CBC WITH AUTO DIFF [HEME] AM Lab 06/23/20 05:11 Ordered CULTURE WOUND [RM] Urgent Lab 06/22/20 18:01 Received Acetaminophen [TylenoL] Med 06/22/20 17:27 Active 650 mg PO Q4H PRN Dextrose 50% in Water Med 06/22/20 16:44 Active 50 ml IV ASDIRECTED PRN Enoxaparin [Lovenox] Med 06/22/20 17:30 Active 40 mg SUBCUT Q24H Glucagon,Human Recombinant [GlucaGen] Med 06/22/20 16:44 Active 1 mg IM ASDIRECTED PRN Insulin Aspart [NovoLOG] Med 06/23/20 07:30 Active See Protocol SUBCUT TIDAC Ondansetron [Zofran] Med 06/22/20 17:27 Active 4 mg IVPUSH Q4H PRN Pharmacy to Dose - Vancomycin Med 06/22/20 17:45 Active 1 dose .XX ASDIRECTED Resuscitation Status Routine Resus Stat 06/22/20 17:27 Ordered Medication Orders Acetaminophen (Tylenol) 650 mg PO Q4H PRN PRN Reason: Pain (Mild 1-3)/fever Dextrose/Water (Dextrose 50% In Water) 50 ml IV ASDIRECTED PRN PRN Reason: Hypoglycemia Enoxaparin Sodium (Lovenox) 40 mg SUBCUT Q24H [facility] Last Admin: 06/22/20 17:54 Dose: 40 mg Documented by: OTTONIEL Glucagon (Glucagen) 1 mg IM ASDIRECTED PRN PRN Reason: Hypoglycemia Piperacillin Sod/Tazobactam (Sod 3.375 gm/ Sodium Chloride) 50 mls @ 100 mls/hr IV Q6H [facility] Last Admin: 06/22/20 17:54 Dose: 100 mls/hr Documented by: OTTONIEL Vancomycin HCl 1.5 gm/ Premix 300 mls @ 200 mls/hr IV Q8H [facility] Insulin Aspart (Novolog) 0 unit SUBCUT TIDAC [facility]; Protocol Ondansetron HCl (Zofran) 4 mg IVPUSH Q4H PRN PRN Reason: Nausea Vancomycin HCl (Pharmacy To Dose - Vancomycin) 1 dose .XX ASDIRECTED [facility] Labs: Laboratory Tests 06/22/20 06/22/20 06/22/20 Range/Units 15:52 15:52 16:12 WBC 11.89 H (4.0-11.0) K/uL RBC 5.74 (4.50-5.90) M/uL Hgb 16.4 (13.0-17.0) g/dL Hct 47.1 (38.0-50.0) % MCV 82.1 (80.0-98.0) fL MCH 28.6 (27.0-32.0) pg MCHC 34.8 (31.0-37.0) g/dL RDW Std Deviation 45.9 (28.0-62.0) fl RDW Coeff of Wily 16 H (11.0-15.0) % Plt Count 234 (150-400) K/uL MPV 9.90 (7.40-12.00) fL Neut % (Auto) 64.8 (48.0-80.0) % Lymph % (Auto) 22.8 (16.0-40.0) % Summers % (Auto) 8.6 (0.0-15.0) % Eos % (Auto) 3.0 (0.0-7.0) % Baso % (Auto) 0.8 (0.0-1.5) % Neut # (Auto) 7.7 H (1.4-5.7) K/uL Lymph # (Auto) 2.7 H (0.6-2.4) K/uL Summers # (Auto) 1.0 H (0.0-0.8) K/uL Eos # (Auto) 0.4 (0.0-0.7) K/uL Baso # (Auto) 0.1 (0.0-0.1) K/uL Nucleated RBC % 0.0 /100WBC Nucleated RBCs # 0 K/uL Sodium 135 L (136-148) mmol/L Potassium 4.8 (3.5-5.1) mmol/L Chloride 99 (98-107) mmol/L Carbon Dioxide 22.2 (21.0-32.0) mmol/L BUN 20 H (7.0-18.0) mg/dL Creatinine 1.1 (0.8-1.3) mg/dL Est Cr Clr Drug Dosing 101.25 mL/min Estimated GFR (MDRD) > 60.0 ml/min Glucose 344 H (74-106) mg/dL POC Glucose (60-110) mg/dL Calcium 9.3 (8.5-10.1) mg/dL Total Bilirubin 0.5 (0.2-1.0) mg/dL AST 34 (15-37) IU/L ALT 59 (14-63) IU/L Alkaline Phosphatase 102 (46-116) U/L C-Reactive Protein (0.00-0.90) mg/dL Total Protein 7.9 (6.4-8.2) g/dL Albumin 3.9 (3.4-5.0) g/dL Globulin 4.0 (2.6-4.0) g/dL Albumin/Globulin Ratio 1.0 (0.9-1.6) SARS-CoV-2 RNA ([place]) NEGATIVE (NEGATIVE) 06/22/20 06/22/20 Range/Units 16:57 17:25 WBC (4.0-11.0) K/uL RBC (4.50-5.90) M/uL Hgb (13.0-17.0) g/dL Hct (38.0-50.0) % MCV (80.0-98.0) fL MCH (27.0-32.0) pg MCHC (31.0-37.0) g/dL RDW Std Deviation (28.0-62.0) fl RDW Coeff of Wily (11.0-15.0) % Plt Count (150-400) K/uL MPV (7.40-12.00) fL Neut % (Auto) (48.0-80.0) % Lymph % (Auto) (16.0-40.0) % Summers % (Auto) (0.0-15.0) % Eos % (Auto) (0.0-7.0) % Baso % (Auto) (0.0-1.5) % Neut # (Auto) (1.4-5.7) K/uL Lymph # (Auto) (0.6-2.4) K/uL Summers # (Auto) (0.0-0.8) K/uL Eos # (Auto) (0.0-0.7) K/uL Baso # (Auto) (0.0-0.1) K/uL Nucleated RBC % /100WBC Nucleated RBCs # K/uL Sodium (136-148) mmol/L Potassium (3.5-5.1) mmol/L Chloride (98-107) mmol/L Carbon Dioxide (21.0-32.0) mmol/L BUN (7.0-18.0) mg/dL Creatinine (0.8-1.3) mg/dL Est Cr Clr Drug Dosing mL/min Estimated GFR (MDRD) ml/min Glucose (74-106) mg/dL POC Glucose 280 H (60-110) mg/dL Calcium (8.5-10.1) mg/dL Total Bilirubin (0.2-1.0) mg/dL AST (15-37) IU/L ALT (14-63) IU/L Alkaline Phosphatase (46-116) U/L C-Reactive Protein 0.60 (0.00-0.90) mg/dL Total Protein (6.4-8.2) g/dL Albumin (3.4-5.0) g/dL Globulin (2.6-4.0) g/dL Albumin/Globulin Ratio (0.9-1.6) SARS-CoV-2 RNA ([place]) (NEGATIVE) Meds: Medications Generic Name Dose Route Start Last Admin Trade Name Freq PRN Reason Stop Dose Admin Acetaminophen 650 mg 06/22/20 17:27 Tylenol PO Q4H PRN Pain (Mild 1-3)/fever Dextrose/Water 50 ml 06/22/20 16:44 Dextrose 50% In Water IV ASDIRECTED PRN Hypoglycemia Enoxaparin Sodium 40 mg 06/22/20 17:30 06/22/20 17:54 Lovenox SUBCUT 40 mg Q24H [facility] Administration Glucagon 1 mg 06/22/20 16:44 Glucagen IM ASDIRECTED PRN Hypoglycemia Piperacillin Sod/Tazobactam 50 mls @ 100 mls/hr 06/22/20 17:45 06/22/20 17:54 Sod 3.375 gm/ Sodium Chloride IV 100 mls/hr Q6H [facility] Administration Vancomycin HCl 1.5 gm/ Premix 300 mls @ 200 mls/hr 06/22/20 17:45 IV Q8H [facility] Insulin Aspart 0 unit 06/23/20 07:30 Novolog SUBCUT TIDAC [facility] Protocol Ondansetron HCl 4 mg 06/22/20 17:27 Zofran IVPUSH Q4H PRN Nausea Vancomycin HCl 1 dose 06/22/20 17:45 Pharmacy To Dose - Vancomycin .XX ASDIRECTED [facility] Discontinued Medications Generic Name Dose Route Start Last Admin Trade Name Freq PRN Reason Stop Dose Admin Insulin Human Regular 6 unit 06/22/20 16:44 06/22/20 17:04 Novolin R SUBCUT 06/22/20 16:45 3 unit ONETIME ONE Administration Protocol Departure - Departure Time of Disposition: 17:01 Disposition: Refer to Observation Clinical Impression: Diabetic foot infection Cellulitis Qualifiers: Site of cellulitis: extremity Site of cellulitis of extremity: lower extremity Laterality: left Qualified Code(s): L03.116 - Cellulitis of left lower limb - Discharge Information Sepsis Event Note (ED) - Evaluation Sepsis Screening Result: No Definite Risk - Focused Exam Vital Signs: Vital Signs Temp Pulse Resp BP Pulse Ox 06/22/20 15:14 97.3 F 91 18 115/75 94 L - My Orders Last 24 Hours: My Active Orders 06/22/20 15:25 Communication Order [RC] STAT 06/22/20 16:42 Admission Status [Patient Status] [ADT] Stat 06/22/20 16:44 Dextrose 50% in Water 50 ml IV ASDIRECTED PRN Glucagon,Human Recombinant [GlucaGen] 1 mg IM ASDIRECTED PRN - Assessment/Plan Last 24 Hours: My Active Orders 06/22/20 15:25 Communication Order [RC] STAT 06/22/20 16:42 Admission Status [Patient Status] [ADT] Stat 06/22/20 16:44 Dextrose 50% in Water 50 ml IV ASDIRECTED PRN Glucagon,Human Recombinant [GlucaGen] 1 mg IM ASDIRECTED PRN
--- NOTE | 2020-06-22 16:27 | CR ---
INDICATION: Diabetic. Foot injury/ulceration. COMPARISON: 03/11/2010 left foot radiographs. FINDINGS/IMPRESSION: No fracture, dislocation, or other acute osseous abnormality identified. No radiographic evidence of osteomyelitis. Mild hallux valgus. 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 Small plantar calcaneal spur. Dictated by Murphy Santiago MD @ 06/22/2020 4:25:04 PM Dictated by: Murphy Santiago MD @ 06/22/2020 16:25:49 (Electronically Signed)
[2020-06-22 16:32] LABS: BLOOD UREA NITROGEN,BUN 20 mg/dL (7.0-18.0); CARBON DIOXIDE,CO2 22.2 mmol/L (21.0-32.0); CHLORIDE,CL 99 mmol/L (98-107); GLUCOSE RANDOM 344 mg/dL (74-106); POTASSIUM,K 4.8 mmol/L (3.5-5.1); SODIUM,NA 135 mmol/L (136-148)
[2020-06-22] MEDS ORDERED: Insulin Regular, Human 100 Units/ML 10 ML Vial SUBCUT ONE (16:44)
[2020-06-22] MEDS ORDERED: 50% Dextrose in Water 50 ML Syringe IV PRN (16:44)
[2020-06-22] MEDS ORDERED: Glucagon,Human Recombinant 1 MG Vial IM PRN (16:44)
--- NOTE | 2020-06-22 17:14 | PCM.HP.2 ---
<Austyn Lambert M - Last Filed: 06/22/20 17:35> H&P History of Present Illness - General Date of Service: 06/22/20 Admit Problem/Dx: Admission Diagnosis/Problem Admission Diagnosis/Problem Diabetic foot infection Source of Information: Patient History Limitations: Reports: No Limitations - History of Present Illness Initial Comments - Free Text/Narative: 50-year-old male presents complaining of left foot first and second toe swelling, redness and pain. He has a PMH of DM type 2, [place] s/p stents, CHF, CML and RA. He reports kicking a tire with his left foot approximately 1 week ago to check the tire pressure. He then noticed a developing lesion on his first and second toes with swelling, redness and mild pain. He went to the [place] [facility] earlier today and was then told to go to the ER for further evaluation. He has not had any fevers, chills, sore throat, cough, SOB, chest pain, nausea, vomiting, abdominal pain, bloody stool, bloody urine, numbness or tingling in extremities. 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 COVID-19 test negative. He was given 3 units of regular insulin. He was admitted for further evaluation and treatment. left foot Pain Score (Numeric/FACES): 6 - Related Data Allergies/Adverse Reactions: Allergies Allergy/AdvReac Type Severity Reaction Status Date / Time naproxen sodium [From Aleve] Allergy Hives Verified 06/22/20 20:29 Home Medications: Home Meds metFORMIN [Glucophage] 1,000 mg PO BID 03/12/15 [History] Cetirizine [ZyrTEC] 10 mg PO DAILY 06/01/20 [History] Cholecalciferol (Vitamin D3) [Vitamin D3] 2,000 unit PO DAILY 06/01/20 [History] Folic Acid 1 mg PO QAM 06/01/20 [History] Furosemide 40 mg PO QAM 06/01/20 [History] Glucosam/Chond-MSM 2/C/D3/Wil [Unijjhthel-Bgntadhrwzy-ZCF] 1 each PO DAILY 06/01/20 [History] Methotrexate 6 tab PO WEEKLY 06/01/20 [History] Multivitamin 1 each PO DAILY 06/01/20 [History] Nilotinib HCl [Tasigna] 400 mg PO BID 06/01/20 [History] Ticagrelor [Brilinta] 90 mg PO BID 06/01/20 [History] atorvaSTATin [Lipitor] 20 mg PO BEDTIME 06/01/20 [History] lisinopriL [Lisinopril] 10 mg PO QAM 06/01/20 [History] Dulaglutide [Trulicity] 3 mg SQ WEEKLY #1 pen 06/23/20 [Rx] Empagliflozin [Jardiance] 10 mg PO DAILY 30 Days #30 tablet 06/23/20 [Rx] Sulfamethoxazole/Trimethoprim [Bactrim Ds Tablet] 2 each PO BID 9 Days #36 tablet 06/23/20 [Rx] Ciprofloxacin [Cipro] 750 mg PO BID 10 Days #20 tab 06/27/20 [Rx] Past Medical History HEENT History: Reports: None Cardiovascular History: Reports: Heart Failure, Hypertension, [place], Stents Other Cardiovascular History: chf Respiratory History: Reports: None Gastrointestinal History: Reports: None Genitourinary History: Reports: None Musculoskeletal History: Reports: RA Neurological History: Reports: None Psychiatric History: Reports: None Endocrine/Metabolic History: Reports: Diabetes, Type II Hematologic History: Reports: None Other Immunologic History: rheumatoid arthritis Oncologic (Cancer) History: Reports: Leukemia, Other (See Below) Other Oncologic History: CML Dermatologic History: Reports: None Other Dermatologic History: abcess neck. Shingles - Infectious Disease History Infectious Disease History: Reports: Chicken Pox, Novel Coronavirus, Shingles - Past Surgical History Head Surgeries/Procedures: Reports: None HEENT Surgical History: Reports: None Cardiovascular Surgical History: Reports: None Respiratory Surgical History: Reports: None GI Surgical History: Reports: None Male Surgical History: Reports: None Neurological Surgical History: Reports: None Musculoskeletal Surgical History: Reports: None Dermatological Surgical History: Reports: None Social & Family History - Family History Family Medical History: No Pertinent Family History - Caffeine Use Caffeine Use: Reports: None - Recreational Drug Use Recreational Drug Use: No H&P Review of Systems - Review of Systems: Review Of Systems: Comprehensive ROS is negative, except as noted in HPI. Exam - Exam Exam: See Below - Vital Signs Vital Signs: Last Vital Signs Temp 36.3 C 06/22/20 15:14 Pulse 91 06/22/20 15:14 Resp 18 06/22/20 15:14 BP 115/75 06/22/20 15:14 Pulse Ox 94 L 06/22/20 15:14 Weight: 131.542 kg - Exam General: Alert, Oriented, Cooperative HEENT: Conjunctiva Clear, EOMI, Hearing Intact, Pupils Equal, Pupils Reactive Neck: Supple, Trachea Midline Lungs: Clear to Auscultation, Normal Respiratory Effort Cardiovascular: Regular Rate, Regular Rhythm GI/Abdominal Exam: Normal Bowel Sounds, Soft, Non-Tender, No Distention Extremities: Normal Inspection, No Pedal Edema Peripheral Pulses: 1+: Dorsalis Pedis (L), Dorsalis Pedis (R) Skin: Other (Left Foot: Approximately 5 cm x 1 cm lesion on medial aspect of great toe. Approximately 3 cm x 1 cm ulceration on distal 2nd toe plantar surface with surrounding erythema and edema. ) Neurological: Cranial Nerves Intact, Strength Equal Bilateral, Normal Speech, Normal Tone Neuro Extensive - Mental Status: Alert, Oriented x3, Normal Mood/Affect Psychiatric: Alert, Normal Affect, Normal Mood - Patient Data Lab Results Last 24 hrs: Laboratory Results - last 24 hr 06/22/20 06/22/20 06/22/20 Range/Units 15:52 15:52 16:57 WBC 11.89 H (4.0-11.0) K/uL RBC 5.74 (4.50-5.90) M/uL Hgb 16.4 (13.0-17.0) g/dL Hct 47.1 (38.0-50.0) % MCV 82.1 (80.0-98.0) fL MCH 28.6 (27.0-32.0) pg MCHC 34.8 (31.0-37.0) g/dL RDW Std Deviation 45.9 (28.0-62.0) fl RDW Coeff of Wily 16 H (11.0-15.0) % Plt Count 234 (150-400) K/uL MPV 9.90 (7.40-12.00) fL Neut % (Auto) 64.8 (48.0-80.0) % Lymph % (Auto) 22.8 (16.0-40.0) % Divide % (Auto) 8.6 (0.0-15.0) % Eos % (Auto) 3.0 (0.0-7.0) % Baso % (Auto) 0.8 (0.0-1.5) % Neut # (Auto) 7.7 H (1.4-5.7) K/uL Lymph # (Auto) 2.7 H (0.6-2.4) K/uL Divide # (Auto) 1.0 H (0.0-0.8) K/uL Eos # (Auto) 0.4 (0.0-0.7) K/uL Baso # (Auto) 0.1 (0.0-0.1) K/uL Nucleated RBC % 0.0 /100WBC Nucleated RBCs # 0 K/uL Sodium 135 L (136-148) mmol/L Potassium 4.8 (3.5-5.1) mmol/L Chloride 99 (98-107) mmol/L Carbon Dioxide 22.2 (21.0-32.0) mmol/L BUN 20 H (7.0-18.0) mg/dL Creatinine 1.1 (0.8-1.3) mg/dL Est Cr Clr Drug Dosing 101.25 mL/min Estimated GFR (MDRD) > 60.0 ml/min Glucose 344 H (74-106) mg/dL POC Glucose 280 H (60-110) mg/dL Calcium 9.3 (8.5-10.1) mg/dL Total Bilirubin 0.5 (0.2-1.0) mg/dL AST 34 (15-37) IU/L ALT 59 (14-63) IU/L Alkaline Phosphatase 102 (46-116) U/L Total Protein 7.9 (6.4-8.2) g/dL Albumin 3.9 (3.4-5.0) g/dL Globulin 4.0 (2.6-4.0) g/dL Albumin/Globulin Ratio 1.0 (0.9-1.6) Result Diagrams: 06/22/20 15:52 06/22/20 15:52 Sepsis Event Note - Evaluation Sepsis Screening Result: No Definite Risk - Focused Exam Vital Signs: Vital Signs Temp Pulse Resp BP Pulse Ox 06/22/20 15:14 36.3 C 91 18 115/75 94 L - Problem List (1) Diabetic foot ulcer SNOMED Code(s): 731040912 ICD Code: E11.621 - TYPE 2 DIABETES MELLITUS WITH FOOT ULCER; L97.509 - NON- PRESSURE CHRONIC ULCER OTH PRT UNSP FOOT W UNSP SEVERITY Status: Acute (2) CHF (congestive heart failure) SNOMED Code(s): 06555671 ICD Code: I50.9 - HEART FAILURE, UNSPECIFIED Status: Acute (3) CML (chronic myelocytic leukemia) SNOMED Code(s): 14165321 ICD Code: C92.10 - CHRONIC MYELOID LEUK, BCR/ABL-POSITIVE, NOT ACHIEVE REMIS Status: Acute (4) Rheumatoid arthritis SNOMED Code(s): 42939208 ICD Code: M06.9 - RHEUMATOID ARTHRITIS, UNSPECIFIED Status: Acute (5) Cellulitis SNOMED Code(s): 888757737 ICD Code: L03.90 - CELLULITIS, UNSPECIFIED Status: Acute (6) Diabetes mellitus SNOMED Code(s): 31957323 ICD Code: E11.9 - TYPE 2 DIABETES MELLITUS WITHOUT COMPLICATIONS Status: Acute (7) NSTEMI (non-ST elevated myocardial infarction) SNOMED Code(s): 93246049 ICD Code: I21.4 - NON-ST ELEVATION (NSTEMI) MYOCARDIAL INFARCTION Status: Acute Problem List Initiated/Reviewed/Updated: Yes Orders Last 24hrs: Active Orders 24 hr Category Date Time Status Admission Status [Patient Status] [ADT] Stat ADT 06/22/20 16:42 Active Blood Glucose Check, Bedside [RC] ONETIME Care 06/22/20 16:44 Active Communication Order [RC] STAT Care 06/22/20 15:25 Active CORONAVIRUS COVID-19 [facility] [MOLEC] Stat Lab 06/22/20 16:12 Received Dextrose 50% in Water Med 06/22/20 16:44 Active 50 ml IV ASDIRECTED PRN Glucagon,Human Recombinant [GlucaGen] Med 06/22/20 16:44 Active 1 mg IM ASDIRECTED PRN Medication Orders Dextrose/Water (Dextrose 50% In Water) 50 ml IV ASDIRECTED PRN PRN Reason: Hypoglycemia Glucagon (Glucagen) 1 mg IM ASDIRECTED PRN PRN Reason: Hypoglycemia Assessment/Plan Comment:: Assessment and Plan: 1. Infected diabetic foot ulcers of LLE: - Admit to med/surg. Will start IV vancomycin and zosyn. Obtain wound cultures. Consult wound care. 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 No signs of osteomyelitis. 2. Diabetes mellitus type 2, uncontrolled: - ADA diet, SSI and accuchecks TIDAC. - Last HgbA1c May 2020 was 10.2. 3. CHF: - Continue home dose of lasix. Fluid restrict < 2 L per day. Daily weights. 4. Past medical history of [place] s/p stents, rheumatoid arthritis and CML: - Continue home medications. - Patient follows-up with Dr. Milian at [facility] in [place], [place] for CML. 5. DVT prophylaxis: - Lovenox 40 mg subcut qd. <Marcos Peters - Last Filed: 06/28/20 11:11> H&P History of Present Illness - General Admit Problem/Dx: Admission Diagnosis/Problem Admission Diagnosis/Problem Diabetic foot infection - History of Present Illness Initial Comments - Free Text/Narative: I performed a history and physical exam of the patient and discussed management with resident. I have reviewed the residents note and agree with documented findings and plan unless otherwise specified in my note. left foot Pain Score (Numeric/FACES): 6 Right Lower Abdomen Pain Score (Numeric/FACES): 2 Exam - Vital Signs Vital Signs: Last Vital Signs Temp 36.6 C 06/23/20 11:40 Pulse 65 06/23/20 11:40 Resp 18 06/23/20 11:40 BP 98/56 L 06/23/20 11:40 Pulse Ox 97 06/23/20 11:40 - Patient Data Result Diagrams: 06/23/20 05:25 06/23/20 05:25
[2020-06-22] MEDS ORDERED: Ondansetron 4 MG/2 ML SDV IVPUSH PRN (17:27)
[2020-06-22] MEDS ORDERED: Acetaminophen 325 MG Tab PO PRN (17:27)
[2020-06-22] MEDS ORDERED: Enoxaparin 40 MG/0.4 ML Syringe SUBCUT SCH (17:30)
[2020-06-22] MEDS: Piperacillin/Tazobactam 3.375 GM in Sodium Chloride 0.9% 50 ML IV SCH (17:54)
[2020-06-22] MEDS ORDERED: atorvaSTATin 20 MG Tab PO SCH (21:00)
[2020-06-22] MEDS: Insulin Aspart 100 Units/ML 3 ML Pen SUBCUT SCH (21:26)
[2020-06-23] MEDS: Piperacillin/Tazobactam 3.375 GM in Sodium Chloride 0.9% 50 ML IV SCH ×2 (00:24→05:23)
[2020-06-23 06:07] LABS: BLOOD UREA NITROGEN,BUN 18 mg/dL (7.0-18.0); CARBON DIOXIDE,CO2 26.4 mmol/L (21.0-32.0); CHLORIDE,CL 103 mmol/L (98-107); GLUCOSE RANDOM 204 mg/dL (74-106); POTASSIUM,K 4.1 mmol/L (3.5-5.1); SODIUM,NA 139 mmol/L (136-148)
[2020-06-23] MEDS ORDERED: Insulin Aspart 100 Units/ML 3 ML Pen SUBCUT SCH (07:30)
[2020-06-23] MEDS: Insulin Aspart 100 Units/ML 3 ML Pen SUBCUT SCH (07:30)
--- NOTE | 2020-06-23 08:57 | PCM.PN ---
- General Info Date of Service: 06/23/20 Subjective Update: No complaints at bedside this morning. Reports feeling like the redness of his foot has improved. Tolerating oral diet. No fevers, chills, nausea or vomiting. - Patient Data Vitals - Most Recent: Last Vital Signs Temp 36.7 C 06/23/20 04:00 Pulse 65 06/23/20 04:00 Resp 18 06/23/20 04:00 BP 108/62 06/23/20 04:00 Pulse Ox 97 06/23/20 04:00 Weight - Most Recent: 131.905 kg I&O - Last 24 Hours: Intake & Output 06/22/20 06/23/20 06/23/20 22:59 06:59 14:59 Intake Total 450 Output Total 860 Balance -410 Lab Results Last 24 Hours: Laboratory Results - last 24 hr 06/22/20 06/22/20 06/22/20 Range/Units 15:52 15:52 16:12 WBC 11.89 H (4.0-11.0) K/uL RBC 5.74 (4.50-5.90) M/uL Hgb 16.4 (13.0-17.0) g/dL Hct 47.1 (38.0-50.0) % MCV 82.1 (80.0-98.0) fL MCH 28.6 (27.0-32.0) pg MCHC 34.8 (31.0-37.0) g/dL RDW Std Deviation 45.9 (28.0-62.0) fl RDW Coeff of Wily 16 H (11.0-15.0) % Plt Count 234 (150-400) K/uL MPV 9.90 (7.40-12.00) fL Neut % (Auto) 64.8 (48.0-80.0) % Lymph % (Auto) 22.8 (16.0-40.0) % Dundy % (Auto) 8.6 (0.0-15.0) % Eos % (Auto) 3.0 (0.0-7.0) % Baso % (Auto) 0.8 (0.0-1.5) % Neut # (Auto) 7.7 H (1.4-5.7) K/uL Lymph # (Auto) 2.7 H (0.6-2.4) K/uL Dundy # (Auto) 1.0 H (0.0-0.8) K/uL Eos # (Auto) 0.4 (0.0-0.7) K/uL Baso # (Auto) 0.1 (0.0-0.1) K/uL Nucleated RBC % 0.0 /100WBC Nucleated RBCs # 0 K/uL ESR (0-19) mm/hr Sodium 135 L (136-148) mmol/L Potassium 4.8 (3.5-5.1) mmol/L Chloride 99 (98-107) mmol/L Carbon Dioxide 22.2 (21.0-32.0) mmol/L BUN 20 H (7.0-18.0) mg/dL Creatinine 1.1 (0.8-1.3) mg/dL Est Cr Clr Drug Dosing 101.25 mL/min Estimated GFR (MDRD) > 60.0 ml/min Glucose 344 H (74-106) mg/dL POC Glucose (60-110) mg/dL Calcium 9.3 (8.5-10.1) mg/dL Total Bilirubin 0.5 (0.2-1.0) mg/dL AST 34 (15-37) IU/L ALT 59 (14-63) IU/L Alkaline Phosphatase 102 (46-116) U/L C-Reactive Protein (0.00-0.90) mg/dL Total Protein 7.9 (6.4-8.2) g/dL Albumin 3.9 (3.4-5.0) g/dL Globulin 4.0 (2.6-4.0) g/dL Albumin/Globulin Ratio 1.0 (0.9-1.6) SARS-CoV-2 RNA (KEYONA) NEGATIVE (NEGATIVE) 06/22/20 06/22/20 06/22/20 Range/Units 16:57 17:25 17:38 WBC (4.0-11.0) K/uL RBC (4.50-5.90) M/uL Hgb (13.0-17.0) g/dL Hct (38.0-50.0) % MCV (80.0-98.0) fL MCH (27.0-32.0) pg MCHC (31.0-37.0) g/dL RDW Std Deviation (28.0-62.0) fl RDW Coeff of Wily (11.0-15.0) % Plt Count (150-400) K/uL MPV (7.40-12.00) fL Neut % (Auto) (48.0-80.0) % Lymph % (Auto) (16.0-40.0) % Dundy % (Auto) (0.0-15.0) % Eos % (Auto) (0.0-7.0) % Baso % (Auto) (0.0-1.5) % Neut # (Auto) (1.4-5.7) K/uL Lymph # (Auto) (0.6-2.4) K/uL Dundy # (Auto) (0.0-0.8) K/uL Eos # (Auto) (0.0-0.7) K/uL Baso # (Auto) (0.0-0.1) K/uL Nucleated RBC % /100WBC Nucleated RBCs # K/uL ESR 25 H (0-19) mm/hr Sodium (136-148) mmol/L Potassium (3.5-5.1) mmol/L Chloride (98-107) mmol/L Carbon Dioxide (21.0-32.0) mmol/L BUN (7.0-18.0) mg/dL Creatinine (0.8-1.3) mg/dL Est Cr Clr Drug Dosing mL/min Estimated GFR (MDRD) ml/min Glucose (74-106) mg/dL POC Glucose 280 H (60-110) mg/dL Calcium (8.5-10.1) mg/dL Total Bilirubin (0.2-1.0) mg/dL AST (15-37) IU/L ALT (14-63) IU/L Alkaline Phosphatase (46-116) U/L C-Reactive Protein 0.60 (0.00-0.90) mg/dL Total Protein (6.4-8.2) g/dL Albumin (3.4-5.0) g/dL Globulin (2.6-4.0) g/dL Albumin/Globulin Ratio (0.9-1.6) SARS-CoV-2 RNA (KEYONA) (NEGATIVE) 06/22/20 06/23/20 06/23/20 Range/Units 21:20 05:25 05:25 WBC 8.85 (4.0-11.0) K/uL RBC 5.16 (4.50-5.90) M/uL Hgb 14.7 (13.0-17.0) g/dL Hct 42.7 (38.0-50.0) % MCV 82.8 (80.0-98.0) fL MCH 28.5 (27.0-32.0) pg MCHC 34.4 (31.0-37.0) g/dL RDW Std Deviation 45.6 (28.0-62.0) fl RDW Coeff of Wily 15 (11.0-15.0) % Plt Count 201 (150-400) K/uL MPV 9.80 (7.40-12.00) fL Neut % (Auto) 58.2 (48.0-80.0) % Lymph % (Auto) 28.5 (16.0-40.0) % Dundy % (Auto) 7.7 (0.0-15.0) % Eos % (Auto) 4.2 (0.0-7.0) % Baso % (Auto) 1.4 (0.0-1.5) % Neut # (Auto) 5.2 (1.4-5.7) K/uL Lymph # (Auto) 2.5 H (0.6-2.4) K/uL Dundy # (Auto) 0.7 (0.0-0.8) K/uL Eos # (Auto) 0.4 (0.0-0.7) K/uL Baso # (Auto) 0.1 (0.0-0.1) K/uL Nucleated RBC % 0.0 /100WBC Nucleated RBCs # 0 K/uL ESR (0-19) mm/hr Sodium 139 (136-148) mmol/L Potassium 4.1 (3.5-5.1) mmol/L Chloride 103 (98-107) mmol/L Carbon Dioxide 26.4 (21.0-32.0) mmol/L BUN 18 (7.0-18.0) mg/dL Creatinine 1.0 (0.8-1.3) mg/dL Est Cr Clr Drug Dosing 111.38 mL/min Estimated GFR (MDRD) > 60.0 ml/min Glucose 204 H (74-106) mg/dL POC Glucose 292 H (60-110) mg/dL Calcium 8.8 (8.5-10.1) mg/dL Total Bilirubin (0.2-1.0) mg/dL AST (15-37) IU/L ALT (14-63) IU/L Alkaline Phosphatase (46-116) U/L C-Reactive Protein (0.00-0.90) mg/dL Total Protein (6.4-8.2) g/dL Albumin (3.4-5.0) g/dL Globulin (2.6-4.0) g/dL Albumin/Globulin Ratio (0.9-1.6) SARS-CoV-2 RNA (KEYONA) (NEGATIVE) 06/23/20 Range/Units 06:46 WBC (4.0-11.0) K/uL RBC (4.50-5.90) M/uL Hgb (13.0-17.0) g/dL Hct (38.0-50.0) % MCV (80.0-98.0) fL MCH (27.0-32.0) pg MCHC (31.0-37.0) g/dL RDW Std Deviation (28.0-62.0) fl RDW Coeff of Wily (11.0-15.0) % Plt Count (150-400) K/uL MPV (7.40-12.00) fL Neut % (Auto) (48.0-80.0) % Lymph % (Auto) (16.0-40.0) % Dundy % (Auto) (0.0-15.0) % Eos % (Auto) (0.0-7.0) % Baso % (Auto) (0.0-1.5) % Neut # (Auto) (1.4-5.7) K/uL Lymph # (Auto) (0.6-2.4) K/uL Dundy # (Auto) (0.0-0.8) K/uL Eos # (Auto) (0.0-0.7) K/uL Baso # (Auto) (0.0-0.1) K/uL Nucleated RBC % /100WBC Nucleated RBCs # K/uL ESR (0-19) mm/hr Sodium (136-148) mmol/L Potassium (3.5-5.1) mmol/L Chloride (98-107) mmol/L Carbon Dioxide (21.0-32.0) mmol/L BUN (7.0-18.0) mg/dL Creatinine (0.8-1.3) mg/dL Est Cr Clr Drug Dosing mL/min Estimated GFR (MDRD) ml/min Glucose (74-106) mg/dL POC Glucose 200 H (60-110) mg/dL Calcium (8.5-10.1) mg/dL Total Bilirubin (0.2-1.0) mg/dL AST (15-37) IU/L ALT (14-63) IU/L Alkaline Phosphatase (46-116) U/L C-Reactive Protein (0.00-0.90) mg/dL Total Protein (6.4-8.2) g/dL Albumin (3.4-5.0) g/dL Globulin (2.6-4.0) g/dL Albumin/Globulin Ratio (0.9-1.6) SARS-CoV-2 RNA ([facility]) (NEGATIVE) Med Orders - Current: Current Medications Acetaminophen (Tylenol) 650 mg PO Q4H PRN PRN Reason: Pain (Mild 1-3)/fever Atorvastatin Calcium (Lipitor) 20 mg PO BEDTIME [facility] Last Admin: 06/22/20 21:25 Dose: 20 mg Documented by: Cetirizine HCl (Zyrtec) 10 mg PO DAILY [facility] Dextrose/Water (Dextrose 50% In Water) 50 ml IV ASDIRECTED PRN PRN Reason: Hypoglycemia Enoxaparin Sodium (Lovenox) 40 mg SUBCUT Q24H [facility] Last Admin: 06/22/20 17:54 Dose: 40 mg Documented by: Folic Acid (Folic Acid) 1 mg PO QAM PAUL Furosemide (Lasix) 40 mg PO QAM PAUL Glucagon (Glucagen) 1 mg IM ASDIRECTED PRN PRN Reason: Hypoglycemia Piperacillin Sod/Tazobactam (Sod 3.375 gm/ Sodium Chloride) 50 mls @ 100 mls/hr IV Q6H [facility] Last Admin: 06/23/20 05:23 Dose: 100 mls/hr Documented by: Vancomycin HCl 1.5 gm/ Premix 300 mls @ 200 mls/hr IV Q8H [facility] Last Admin: 06/23/20 01:17 Dose: 200 mls/hr Documented by: Insulin Aspart (Novolog) 0 unit SUBCUT TIDAC [facility]; Protocol Last Admin: 06/22/20 21:26 Dose: 6 units Documented by: Lisinopril (Prinivil) 10 mg PO DAILY PAUL Ondansetron HCl (Zofran) 4 mg IVPUSH Q4H PRN PRN Reason: Nausea Nilotinib Hcl [ (Tasigna] 200mg) 2 each PO BID PAUL Ticagrelor [Brilinta (] 90mg) 1 each PO BID PAUL Vancomycin HCl (Pharmacy To Dose - Vancomycin) 1 dose .XX ASDIRECTED PAUL Discontinued Medications Insulin Aspart (Novolog) 0 unit SUBCUT TIDAC [facility]; Protocol Insulin Human Regular (Novolin R) 6 unit SUBCUT ONETIME ONE; Protocol Stop: 06/22/20 16:45 Last Admin: 06/22/20 17:04 Dose: 3 unit Documented by: - Exam General: Alert, Oriented, Cooperative, No Acute Distress Lungs: Clear to Auscultation, Normal Respiratory Effort Cardiovascular: Regular Rate, Regular Rhythm GI/Abdominal Exam: Normal Bowel Sounds, Soft, Non-Tender, No Abnormal Bruit Extremities: Other (Left Foot: Approximately 5 cm x 1 cm lesion on medial aspect of great toe. Approximately 3 cm x 1 cm ulceration on distal 2nd toe plantar surface with surrounding erythema and edema which appears to be improved from previous exam.) Sepsis Event Note - Evaluation Sepsis Screening Result: No Definite Risk - Focused Exam Vital Signs: Vital Signs Temp Pulse Resp BP Pulse Ox 06/23/20 04:00 36.7 C 65 18 108/62 97 06/23/20 00:00 36.4 C 75 18 119/68 98 - Problem List & Annotations (1) Diabetic foot ulcer SNOMED Code(s): 252748410 Code(s): E11.621 - TYPE 2 DIABETES MELLITUS WITH FOOT ULCER; L97.509 - NON- PRESSURE CHRONIC ULCER OTH PRT UNSP FOOT W UNSP SEVERITY Status: Acute Current Visit: Yes (2) CHF (congestive heart failure) SNOMED Code(s): 14241065 Code(s): I50.9 - HEART FAILURE, UNSPECIFIED Status: Acute Current Visit: Yes (3) CML (chronic myelocytic leukemia) SNOMED Code(s): 08067783 Code(s): C92.10 - CHRONIC MYELOID LEUK, BCR/ABL-POSITIVE, NOT ACHIEVE REMIS Status: Acute Current Visit: Yes (4) Rheumatoid arthritis SNOMED Code(s): 46101714 Code(s): M06.9 - RHEUMATOID ARTHRITIS, UNSPECIFIED Status: Acute Current Visit: Yes (5) Cellulitis SNOMED Code(s): 263583555 Code(s): L03.90 - CELLULITIS, UNSPECIFIED Status: Acute Current Visit: Yes Qualifiers: Site of cellulitis: extremity Site of cellulitis of extremity: lower extremity Laterality: left Qualified Code(s): L03.116 - Cellulitis of left lower limb (6) Diabetes mellitus SNOMED Code(s): 53650956 Code(s): E11.9 - TYPE 2 DIABETES MELLITUS WITHOUT COMPLICATIONS Status: Acute Current Visit: No (7) NSTEMI (non-ST elevated myocardial infarction) SNOMED Code(s): 74650176 Code(s): I21.4 - NON-ST ELEVATION (NSTEMI) MYOCARDIAL INFARCTION Status: Acute Current Visit: No - My Orders Last 24 Hours: My Active Orders 06/22/20 Dinner [employer] Diet [DIET] Fluid Restriction [DIET] 06/22/20 17:27 Oxygen Therapy [RC] PRN Up ad Margot [RC] ASDIRECTED VTE/DVT Education [RC] PER UNIT ROUTINE Vital Signs [RC] Q4H Acetaminophen [TylenoL] 650 mg PO Q4H PRN Ondansetron [Zofran] 4 mg IVPUSH Q4H PRN Resuscitation Status Routine 06/22/20 17:29 Blood Glucose Check, Bedside [RC] TIDAC 06/22/20 17:30 Consult to Wound Care Services [CONS] Routine Enoxaparin [Lovenox] 40 mg SUBCUT Q24H 06/22/20 17:45 Pharmacy to Dose - Vancomycin 1 dose .XX ASDIRECTED Piperacillin/Tazobactam [Piperacil-Tazobact] 3.375 gm Sodium Chloride 0.9% [Normal Saline] 50 ml IV Q6H VANCOmycin/Water for INJ (PEG) [VANCOmycin 1.5 GM/300 ML Premix] 1.5 gm Premix Bag 1 bag IV Q8H 06/22/20 18:01 CULTURE WOUND [RM] Urgent 06/22/20 21:00 atorvaSTATin [Lipitor] 20 mg PO BEDTIME 06/23/20 09:00 Cetirizine [ZyrTEC] 10 mg PO DAILY Folic Acid 1 mg PO QAM Furosemide [Lasix] 40 mg PO QAM Patient's Own Medication [Ptom] 1 each PO BID Patient's Own Medication [Ptom] 2 each PO BID lisinopriL [Prinivil] 10 mg PO DAILY - Plan Plan:: Assessment and Plan: 1. Infected diabetic foot ulcers of LLE: - Continue IV vancomycin and zosyn. Wound cultures are pending. Wound care has been consulted. 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 No signs of osteomyelitis. 2. Diabetes mellitus type 2, uncontrolled: - ADA diet, SSI and accuchecks TIDAC. - Last HgbA1c May 2020 was 10.2. 3. CHF: - Continue home dose of lasix. Fluid restrict < 2 L per day and daily weights. 4. Past medical history of NC s/p stents, rheumatoid arthritis and CML: - Continue home medications. - Patient follows-up with Dr. Milian at [facility] in [place], [place] for CML. 5. DVT prophylaxis: - Lovenox 40 mg subcut qd.
[2020-06-23] MEDS ORDERED: Cetirizine 10 MG Tab PO SCH (09:00)
[2020-06-23] MEDS ORDERED: Lisinopril 10 MG Tab PO SCH (09:00)
[2020-06-23] MEDS ORDERED: Folic Acid 1 MG Tab PO SCH (09:00)
[2020-06-23] MEDS ORDERED: NILOTINIB HCL 200 MG PO SCH (09:00)
[2020-06-23] MEDS ORDERED: TICAGRELOR 90 MG PO SCH (09:00)
[2020-06-23] MEDS ORDERED: Furosemide 80 MG Tab PO SCH (09:00)
[2020-06-23 11:41] VITALS: BP 98/56; PULSE 65
--- NOTE | 2020-06-23 12:47 | PCM.DCSUM1 ---
<Austyn Lambert - Last Filed: 06/23/20 14:41> Discharge Summary - Hospital Course Free Text/Narrative:: 50-year-old male admitted for infected diabetic foot ulcers of left foot 1st and 2nd digits. He has a PMH of uncontrolled DM type 2, IN s/p stents, CHF, CML and RA. 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 He was started on IV vancomycin and zosyn. Wound cultures obtained and pending at this time. Wound care was consulted and recommended protecting toes as much as possible and they provided patient education on this. Patient was given script for diabetic shoes. On day of discharge, there was significant improvement in edema and erythema of his foot ulcers. He was discharged on 9 more days of Bactrim DS (take 2 tablets BID per pharmacy). For his uncontrolled DM type 2, diabetic education was also consulted. Diabetic education recommended continuing metformin, increasing trulicity to 3 mg weekly, start jardiance 10 mg qd and discontinue glyburide. Diabetic education also discussed starting insulin with patient, however, patient was not interested in starting insulin at this time and will follow-up with his PCP regarding this. Patient discharged in stable condition with close follow-up with podiatry. - Discharge Data Discharge Date: 06/23/20 Discharge Disposition: Home, Self-Care 01 Condition: Stable - Referral to Home Health Primary Care Physician: Jc Salcedo NP - Discharge Diagnosis/Problem(s) (1) Diabetic foot ulcer SNOMED Code(s): 168824359 ICD Code: E11.621 - TYPE 2 DIABETES MELLITUS WITH FOOT ULCER; L97.509 - NON- PRESSURE CHRONIC ULCER OTH PRT UNSP FOOT W UNSP SEVERITY Status: Acute (2) CHF (congestive heart failure) SNOMED Code(s): 31139079 ICD Code: I50.9 - HEART FAILURE, UNSPECIFIED Status: Acute (3) CML (chronic myelocytic leukemia) SNOMED Code(s): 71430604 ICD Code: C92.10 - CHRONIC MYELOID LEUK, BCR/ABL-POSITIVE, NOT ACHIEVE REMIS Status: Acute (4) Rheumatoid arthritis SNOMED Code(s): 03369014 ICD Code: M06.9 - RHEUMATOID ARTHRITIS, UNSPECIFIED Status: Acute (5) Cellulitis SNOMED Code(s): 202683316 ICD Code: L03.90 - CELLULITIS, UNSPECIFIED Status: Acute Qualifiers: Site of cellulitis: extremity Site of cellulitis of extremity: lower extremity Laterality: left Qualified Code(s): L03.116 - Cellulitis of left lower limb (6) Diabetes mellitus SNOMED Code(s): 22049788 ICD Code: E11.9 - TYPE 2 DIABETES MELLITUS WITHOUT COMPLICATIONS Status: Acute (7) NSTEMI (non-ST elevated myocardial infarction) SNOMED Code(s): 51783078 ICD Code: I21.4 - NON-ST ELEVATION (NSTEMI) MYOCARDIAL INFARCTION Status: Acute - Patient Summary/Data Consults: Consultations 06/22/20 17:30 Consult to Wound Care Services [CONS] Routine 06/23/20 11:05 Consult to Bench Worker Helper [Consult to Diabetic Nurse Specialist] [CONS] Routine - Patient Instructions Diet: Fluid Restriction, Diabetic Diet Fluid Restriction: 2000 mL Activity: As Tolerated Notify Provider of: Fever, Increased Pain, Swelling and Redness, Drainage, Nause a and/or Vomiting - Discharge Plan *PRESCRIPTION DRUG MONITORING PROGRAM REVIEWED*: Not Applicable *COPY OF PRESCRIPTION DRUG MONITORING REPORT IN PATIENT SULEMAN: Not Applicable Prescriptions/Med Rec: Sulfamethoxazole/Trimethoprim [Bactrim Ds Tablet] 2 each PO BID 9 Days #36 tablet Ciprofloxacin [Cipro] 750 mg PO BID 10 Days #20 tab Empagliflozin [Jardiance] 10 mg PO DAILY 30 Days #30 tablet Home Medications: Home Meds metFORMIN [Glucophage] 1,000 mg PO BID 03/12/15 [History] Cetirizine [ZyrTEC] 10 mg PO DAILY 06/01/20 [History] Cholecalciferol (Vitamin D3) [Vitamin D3] 2,000 unit PO DAILY 06/01/20 [History] Folic Acid 1 mg PO QAM 06/01/20 [History] Furosemide 40 mg PO QAM 06/01/20 [History] Glucosam/Chond-MSM 2/C/D3/Wil [Vatcvtznje-Cimmksewcxq-QSB] 1 each PO DAILY 06/01/20 [History] Methotrexate 6 tab PO WEEKLY 06/01/20 [History] Multivitamin 1 each PO DAILY 06/01/20 [History] Nilotinib HCl [Tasigna] 400 mg PO BID 06/01/20 [History] Ticagrelor [Brilinta] 90 mg PO BID 06/01/20 [History] atorvaSTATin [Lipitor] 20 mg PO BEDTIME 06/01/20 [History] lisinopriL [Lisinopril] 10 mg PO QAM 06/01/20 [History] Dulaglutide [Trulicity] 3 mg SQ WEEKLY #1 pen 06/23/20 [Rx] Empagliflozin [Jardiance] 10 mg PO DAILY 30 Days #30 tablet 06/23/20 [Rx] Sulfamethoxazole/Trimethoprim [Bactrim Ds Tablet] 2 each PO BID 9 Days #36 tablet 06/23/20 [Rx] Ciprofloxacin [Cipro] 750 mg PO BID 10 Days #20 tab 06/27/20 [Rx] Oxygen Therapy Mode: Room Air Patient Handouts: Diabetes Mellitus and Foot Care, Empagliflozin oral tablets, Sulfamethoxazole; Trimethoprim, SMX-TMP tablets Referrals: Jc Salcedo NP [Primary Care Provider] - 07/06/20 1:30 pm Tavo Aquino DPM [Physician] - 06/28/20 1:30 pm (Please arrive 15 minutes early for your appointment and wearing a face mask. ) - Discharge Summary/Plan Comment DC Time >30 min.: No - Patient Data Vitals - Most Recent: Last Vital Signs Temp 36.6 C 06/23/20 11:40 Pulse 65 06/23/20 11:40 Resp 18 06/23/20 11:40 BP 98/56 L 06/23/20 11:40 Pulse Ox 97 06/23/20 11:40 Weight - Most Recent: 132.2 kg I&O - Last 24 hours: Intake & Output 06/22/20 06/23/20 06/23/20 22:59 06:59 14:59 Intake Total 450 Output Total 860 Balance -410 Lab Results - Last 24 hrs: Laboratory Results - last 24 hr 06/22/20 06/22/20 06/22/20 Range/Units 15:52 15:52 16:12 WBC 11.89 H (4.0-11.0) K/uL RBC 5.74 (4.50-5.90) M/uL Hgb 16.4 (13.0-17.0) g/dL Hct 47.1 (38.0-50.0) % MCV 82.1 (80.0-98.0) fL MCH 28.6 (27.0-32.0) pg MCHC 34.8 (31.0-37.0) g/dL RDW Std Deviation 45.9 (28.0-62.0) fl RDW Coeff of Wily 16 H (11.0-15.0) % Plt Count 234 (150-400) K/uL MPV 9.90 (7.40-12.00) fL Neut % (Auto) 64.8 (48.0-80.0) % Lymph % (Auto) 22.8 (16.0-40.0) % [place] % (Auto) 8.6 (0.0-15.0) % Eos % (Auto) 3.0 (0.0-7.0) % Baso % (Auto) 0.8 (0.0-1.5) % Neut # (Auto) 7.7 H (1.4-5.7) K/uL Lymph # (Auto) 2.7 H (0.6-2.4) K/uL [place] # (Auto) 1.0 H (0.0-0.8) K/uL Eos # (Auto) 0.4 (0.0-0.7) K/uL Baso # (Auto) 0.1 (0.0-0.1) K/uL Nucleated RBC % 0.0 /100WBC Nucleated RBCs # 0 K/uL ESR (0-19) mm/hr Sodium 135 L (136-148) mmol/L Potassium 4.8 (3.5-5.1) mmol/L Chloride 99 (98-107) mmol/L Carbon Dioxide 22.2 (21.0-32.0) mmol/L BUN 20 H (7.0-18.0) mg/dL Creatinine 1.1 (0.8-1.3) mg/dL Est Cr Clr Drug Dosing 101.25 mL/min Estimated GFR (MDRD) > 60.0 ml/min Glucose 344 H (74-106) mg/dL POC Glucose (60-110) mg/dL Calcium 9.3 (8.5-10.1) mg/dL Total Bilirubin 0.5 (0.2-1.0) mg/dL AST 34 (15-37) IU/L ALT 59 (14-63) IU/L Alkaline Phosphatase 102 (46-116) U/L C-Reactive Protein (0.00-0.90) mg/dL Total Protein 7.9 (6.4-8.2) g/dL Albumin 3.9 (3.4-5.0) g/dL Globulin 4.0 (2.6-4.0) g/dL Albumin/Globulin Ratio 1.0 (0.9-1.6) SARS-CoV-2 RNA ([place]) NEGATIVE (NEGATIVE) 06/22/20 06/22/20 06/22/20 Range/Units 16:57 17:25 17:38 WBC (4.0-11.0) K/uL RBC (4.50-5.90) M/uL Hgb (13.0-17.0) g/dL Hct (38.0-50.0) % MCV (80.0-98.0) fL MCH (27.0-32.0) pg MCHC (31.0-37.0) g/dL RDW Std Deviation (28.0-62.0) fl RDW Coeff of Wily (11.0-15.0) % Plt Count (150-400) K/uL MPV (7.40-12.00) fL Neut % (Auto) (48.0-80.0) % Lymph % (Auto) (16.0-40.0) % [place] % (Auto) (0.0-15.0) % Eos % (Auto) (0.0-7.0) % Baso % (Auto) (0.0-1.5) % Neut # (Auto) (1.4-5.7) K/uL Lymph # (Auto) (0.6-2.4) K/uL [place] # (Auto) (0.0-0.8) K/uL Eos # (Auto) (0.0-0.7) K/uL Baso # (Auto) (0.0-0.1) K/uL Nucleated RBC % /100WBC Nucleated RBCs # K/uL ESR 25 H (0-19) mm/hr Sodium (136-148) mmol/L Potassium (3.5-5.1) mmol/L Chloride (98-107) mmol/L Carbon Dioxide (21.0-32.0) mmol/L BUN (7.0-18.0) mg/dL Creatinine (0.8-1.3) mg/dL Est Cr Clr Drug Dosing mL/min Estimated GFR (MDRD) ml/min Glucose (74-106) mg/dL POC Glucose 280 H (60-110) mg/dL Calcium (8.5-10.1) mg/dL Total Bilirubin (0.2-1.0) mg/dL AST (15-37) IU/L ALT (14-63) IU/L Alkaline Phosphatase (46-116) U/L C-Reactive Protein 0.60 (0.00-0.90) mg/dL Total Protein (6.4-8.2) g/dL Albumin (3.4-5.0) g/dL Globulin (2.6-4.0) g/dL Albumin/Globulin Ratio (0.9-1.6) SARS-CoV-2 RNA ([place]) (NEGATIVE) 06/22/20 06/23/20 06/23/20 Range/Units 21:20 05:25 05:25 WBC 8.85 (4.0-11.0) K/uL RBC 5.16 (4.50-5.90) M/uL Hgb 14.7 (13.0-17.0) g/dL Hct 42.7 (38.0-50.0) % MCV 82.8 (80.0-98.0) fL MCH 28.5 (27.0-32.0) pg MCHC 34.4 (31.0-37.0) g/dL RDW Std Deviation 45.6 (28.0-62.0) fl RDW Coeff of Wily 15 (11.0-15.0) % Plt Count 201 (150-400) K/uL MPV 9.80 (7.40-12.00) fL Neut % (Auto) 58.2 (48.0-80.0) % Lymph % (Auto) 28.5 (16.0-40.0) % [place] % (Auto) 7.7 (0.0-15.0) % Eos % (Auto) 4.2 (0.0-7.0) % Baso % (Auto) 1.4 (0.0-1.5) % Neut # (Auto) 5.2 (1.4-5.7) K/uL Lymph # (Auto) 2.5 H (0.6-2.4) K/uL [place] # (Auto) 0.7 (0.0-0.8) K/uL Eos # (Auto) 0.4 (0.0-0.7) K/uL Baso # (Auto) 0.1 (0.0-0.1) K/uL Nucleated RBC % 0.0 /100WBC Nucleated RBCs # 0 K/uL ESR (0-19) mm/hr Sodium 139 (136-148) mmol/L Potassium 4.1 (3.5-5.1) mmol/L Chloride 103 (98-107) mmol/L Carbon Dioxide 26.4 (21.0-32.0) mmol/L BUN 18 (7.0-18.0) mg/dL Creatinine 1.0 (0.8-1.3) mg/dL Est Cr Clr Drug Dosing 111.38 mL/min Estimated GFR (MDRD) > 60.0 ml/min Glucose 204 H (74-106) mg/dL POC Glucose 292 H (60-110) mg/dL Calcium 8.8 (8.5-10.1) mg/dL Total Bilirubin (0.2-1.0) mg/dL AST (15-37) IU/L ALT (14-63) IU/L Alkaline Phosphatase (46-116) U/L C-Reactive Protein (0.00-0.90) mg/dL Total Protein (6.4-8.2) g/dL Albumin (3.4-5.0) g/dL Globulin (2.6-4.0) g/dL Albumin/Globulin Ratio (0.9-1.6) SARS-CoV-2 RNA ([place]) (NEGATIVE) 06/23/20 06/23/20 Range/Units 06:46 11:19 WBC (4.0-11.0) K/uL RBC (4.50-5.90) M/uL Hgb (13.0-17.0) g/dL Hct (38.0-50.0) % MCV (80.0-98.0) fL MCH (27.0-32.0) pg MCHC (31.0-37.0) g/dL RDW Std Deviation (28.0-62.0) fl RDW Coeff of Wily (11.0-15.0) % Plt Count (150-400) K/uL MPV (7.40-12.00) fL Neut % (Auto) (48.0-80.0) % Lymph % (Auto) (16.0-40.0) % [place] % (Auto) (0.0-15.0) % Eos % (Auto) (0.0-7.0) % Baso % (Auto) (0.0-1.5) % Neut # (Auto) (1.4-5.7) K/uL Lymph # (Auto) (0.6-2.4) K/uL [place] # (Auto) (0.0-0.8) K/uL Eos # (Auto) (0.0-0.7) K/uL Baso # (Auto) (0.0-0.1) K/uL Nucleated RBC % /100WBC Nucleated RBCs # K/uL ESR (0-19) mm/hr Sodium (136-148) mmol/L Potassium (3.5-5.1) mmol/L Chloride (98-107) mmol/L Carbon Dioxide (21.0-32.0) mmol/L BUN (7.0-18.0) mg/dL Creatinine (0.8-1.3) mg/dL Est Cr Clr Drug Dosing mL/min Estimated GFR (MDRD) ml/min Glucose (74-106) mg/dL POC Glucose 200 H 206 H (60-110) mg/dL Calcium (8.5-10.1) mg/dL Total Bilirubin (0.2-1.0) mg/dL AST (15-37) IU/L ALT (14-63) IU/L Alkaline Phosphatase (46-116) U/L C-Reactive Protein (0.00-0.90) mg/dL Total Protein (6.4-8.2) g/dL Albumin (3.4-5.0) g/dL Globulin (2.6-4.0) g/dL Albumin/Globulin Ratio (0.9-1.6) SARS-CoV-2 RNA ([place]) (NEGATIVE) Med Orders - Current: Current Medications Acetaminophen (Tylenol) 650 mg PO Q4H PRN PRN Reason: Pain (Mild 1-3)/fever Atorvastatin Calcium (Lipitor) 20 mg PO BEDTIME [facility] Last Admin: 06/22/20 21:25 Dose: 20 mg Documented by: Cetirizine HCl (Zyrtec) 10 mg PO DAILY [facility] Last Admin: 06/23/20 09:51 Dose: 10 mg Documented by: Dextrose/Water (Dextrose 50% In Water) 50 ml IV ASDIRECTED PRN PRN Reason: Hypoglycemia Enoxaparin Sodium (Lovenox) 40 mg SUBCUT Q24H [facility] Last Admin: 06/22/20 17:54 Dose: 40 mg Documented by: Folic Acid (Folic Acid) 1 mg PO QAM [facility] Last Admin: 06/23/20 09:51 Dose: 1 mg Documented by: Furosemide (Lasix) 40 mg PO QAM [facility] Last Admin: 06/23/20 09:51 Dose: 40 mg Documented by: Glucagon (Glucagen) 1 mg IM ASDIRECTED PRN PRN Reason: Hypoglycemia Piperacillin Sod/Tazobactam (Sod 3.375 gm/ Sodium Chloride) 50 mls @ 100 mls/hr IV Q6H [facility] Last Admin: 06/23/20 05:23 Dose: 100 mls/hr Documented by: Vancomycin HCl 1.5 gm/ Premix 300 mls @ 200 mls/hr IV Q8H [facility] Last Admin: 06/23/20 10:04 Dose: 200 mls/hr Documented by: [facility]ulin [facility] ([facility]olog) [facility]; Protocol Last Admin: 06/23/20 07:30 Dose: 4 units Documented by: Lisinopril (Prinivil) 10 mg PO DAILY [facility] Last Admin: 06/23/20 09:50 Dose: 10 mg Documented by: Ondansetron HCl (Zofran) 4 mg IVPUSH Q4H PRN PRN Reason: Nausea Nilotinib Hcl [ (Tasigna] 200mg) 2 each PO BID [facility] Last Admin: 06/23/20 09:54 Dose: Not Given Documented by: Ticagrelor [Brilinta (] 90mg) 1 each PO BID [facility] Last Admin: 06/23/20 09:55 Dose: Not Given Documented by: Vancomycin HCl (Pharmacy To Dose - Vancomycin) 1 dose .XX ASDIRECTED [facility] Discontinued Medications Insulin Aspart (Novolog) 0 unit SUBCUT [facility]; Protocol Insulin Human Regular (Novolin R) 6 unit SUBCUT ONETIME ONE; Protocol Stop: 06/22/20 16:45 Last Admin: 06/22/20 17:04 Dose: 3 unit Documented by: <Marcos Peters - Last Filed: 06/28/20 11:06> Discharge Summary - Hospital Course Free Text/Narrative:: I have seen and evaluated the patient and agree with the residents note unless specified in my note - Referral to Home Health Primary Care Physician: Jc Salcedo NP - Patient Summary/Data Consults: Consultations 06/22/20 17:30 Consult to Wound Care Services [CONS] Routine 06/23/20 11:05 Consult to Bench Worker Helper [Consult to Diabetic Nurse Specialist] [CONS] Routine - Patient Data Vitals - Most Recent: Last Vital Signs Temp 36.6 C 06/23/20 11:40 Pulse 65 06/23/20 11:40 Resp 18 06/23/20 11:40 BP 98/56 L 06/23/20 11:40 Pulse Ox 97 06/23/20 11:40 Med Orders - Current: Current Medications Discontinued Medications Acetaminophen (Tylenol) 650 mg PO Q4H PRN PRN Reason: Pain (Mild 1-3)/fever Atorvastatin Calcium (Lipitor) 20 mg PO BEDTIME [facility] Last Admin: 06/22/20 21:25 Dose: 20 mg Documented by: Cetirizine HCl (Zyrtec) 10 mg PO DAILY [facility] Last Admin: 06/23/20 09:51 Dose: 10 mg Documented by: Dextrose/Water (Dextrose 50% In Water) 50 ml IV ASDIRECTED PRN PRN Reason: Hypoglycemia Enoxaparin Sodium (Lovenox) 40 mg SUBCUT Q24H [facility] Last Admin: 06/22/20 17:54 Dose: 40 mg Documented by: Folic Acid (Folic Acid) 1 mg PO QAM [facility] Last Admin: 06/23/20 09:51 Dose: 1 mg Documented by: Furosemide (Lasix) 40 mg PO QAM [facility] Last Admin: 06/23/20 09:51 Dose: 40 mg Documented by: Glucagon (Glucagen) 1 mg IM ASDIRECTED PRN PRN Reason: Hypoglycemia Piperacillin Sod/Tazobactam (Sod 3.375 gm/ Sodium Chloride) 50 mls @ 100 mls/hr IV Q6H [facility] Last Admin: 06/23/20 05:23 Dose: 100 mls/hr Documented by: Vancomycin HCl 1.5 gm/ Premix 300 mls @ 200 mls/hr IV Q8H [facility] Last Admin: 06/23/20 10:04 Dose: 200 mls/hr Documented by: Insulin Aspart (Novolog) 0 unit SUBCUT [facility]; Protocol Insulin Aspart (Novolog) 0 unit SUBCUT [facility]; Protocol Last Admin: 06/23/20 07:30 Dose: 4 units Documented by: Insulin Human Regular (Novolin R) 6 unit SUBCUT ONETIME ONE; Protocol Stop: 06/22/20 16:45 Last Admin: 06/22/20 17:04 Dose: 3 unit Documented by: Lisinopril (Prinivil) 10 mg PO DAILY [facility] Last Admin: 06/23/20 09:50 Dose: 10 mg Documented by: Ondansetron HCl (Zofran) 4 mg IVPUSH Q4H PRN PRN Reason: Nausea Nilotinib Hcl [ (Tasigna] 200mg) 2 each PO BID [facility] Last Admin: 06/23/20 09:54 Dose: Not Given Documented by: Ticagrelor [Brilinta (] 90mg) 1 each PO BID [facility] Last Admin: 06/23/20 09:55 Dose: Not Given Documented by: Vancomycin HCl (Pharmacy To Dose - Vancomycin) 1 dose .XX ASDIRECTED [facility]
== END 2020-06-23 13:50 | disposition home or self-care (01) ==
LOC: MW.ED 15:04 → MW.MS 17:32
PROVIDERS: ADMIT Student in an Organized Health Care Education/Training Program; ATTEND Student in an Organized Health Care Education/Training Program
DX: E11.621 Type 2 diabetes mellitus with foot ulcer (principal); L97.529 Non-pressure chronic ulcer of other part of left foot with unspecified severity; E11.65 Type 2 diabetes mellitus with hyperglycemia; L03.116 Cellulitis of left lower limb; I11.0 Hypertensive heart disease with heart failure; I50.9 Heart failure, unspecified; C92.10 Chronic myeloid leukemia, BCR/ABL-positive, not having achieved remission; I25.2 Old myocardial infarction; M06.9 Rheumatoid arthritis, unspecified; Z88.8 Allergy status to other drugs, medicaments and biological substances; Z95.5 Presence of coronary angioplasty implant and graft; Z20.822 Contact with and (suspected) exposure to COVID-19; Z79.84 Long term (current) use of oral hypoglycemic drugs; Z79.899 Other long term (current) drug therapy
CPT/HCPCS: 36415; 73620; 80048; 80053; 82962; 85025; 85652; 86140; 87070; 87077; 87186; 87635; 97802; A9270; J1650; J1815; J2543; J3370; 96374; 99283; 99284-25; U0002

== ENCOUNTER 2020-11-02 06:25 | Day surgery (SDC) | payer BC, OTHER ==
[~2020-11-02 06:25] MED LIST: Lactated Ringers 1,000 ML IV SCH
[2020-11-02] MEDS ORDERED: Midazolam 1 MG/ML 2 ML SDV ONE (07:20)
[2020-11-02] MEDS ORDERED: Propofol 200 MG/20 ML SDV ONE (07:20)
--- NOTE | 2020-11-02 08:12 | PCM.OPNOTE ---
- General Post-Op/Procedure Note Date of Surgery/Procedure: 11/02/20 Operative Procedure(s): Colonoscopy with polypectomy Findings: Small polyp at about 15 cm dictation number [id number] Pre Op Diagnosis: family history of colon cancer Post-Op Diagnosis: small polyp Primary Surgeon: Dick Nair Pathology: polyp Complications: None Condition: Good
[2020-11-02 08:37] VITALS: BP 101/63; PULSE 55
--- NOTE | 2020-11-02 08:44 | PCM.PREANE ---
Preanesthetic Assessment - Anesthesia/Transfusion/Family Hx Anesthesia History: Prior Anesthesia Without Reaction Family History of Anesthesia Reaction: No Transfusion History: No Prior Transfusion(s) - Review of Systems General: No Symptoms Pulmonary: No Symptoms Cardiovascular: Dyspnea on Exertion Gastrointestinal: No Symptoms Neurological: No Symptoms Other: Reports: None - Physical Assessment NPO Status Date: 11/02/20 NPO Status Time: 00:00 Vital Signs: Last Vital Signs Temp 97.0 F 11/02/20 08:31 Pulse 55 L 11/02/20 08:31 Resp 14 11/02/20 08:31 BP 101/63 11/02/20 08:31 Pulse Ox 96 11/02/20 08:31 Height: 6 ft 5 in Weight: 295 lb ASA Class: 3 Mental Status: Alert & Oriented x3 Dentition: Reports: Normal Dentition Thyro-Mental Finger Breadths: 4 Mouth Opening Finger Breadths: 4 ROM/Head Extension: Full Lungs: Clear to Auscultation, Normal Respiratory Effort Cardiovascular: Regular Rate, Regular Rhythm - Allergies Allergies/Adverse Reactions: Allergies Allergy/AdvReac Type Severity Reaction Status Date / Time naproxen sodium [From Aleve] Allergy Hives Verified 10/27/20 10:02 - Acknowledgements Anesthesia Type Planned: General Anesthesia Pt an Appropriate Candidate for the Planned Anesthesia: Yes Alternatives and Risks of Anesthesia Discussed w Pt/Guardian: Yes Pt/Guardian Understands and Agrees with Anesthesia Plan: Yes PreAnesthesia Questionnaire HEENT History: Reports: Other (See Below) Other HEENT History: uses reading glasses Cardiovascular History: Reports: [place], Stents Other Cardiovascular History: 2 stents placed November 2019 Respiratory History: Reports: None Gastrointestinal History: Reports: GERD Other Gastrointestinal History: gets acid reflux from Chemo med Genitourinary History: Reports: None Musculoskeletal History: Reports: RA Neurological History: Reports: None Psychiatric History: Reports: None Endocrine/Metabolic History: Reports: Diabetes, Type II, Obesity/BMI 30+ Hematologic History: Reports: Anticoagulation Therapy Other Immunologic History: rheumatoid arthritis Oncologic (Cancer) History: Reports: Leukemia, Other (See Below) Other Oncologic History: CML (chronic myeloid Leukemia) Dermatologic History: Reports: None - Infectious Disease History Infectious Disease History: Reports: Chicken Pox, Novel Coronavirus, Shingles - Past Surgical History Head Surgeries/Procedures: Reports: None HEENT Surgical History: Reports: None Cardiovascular Surgical History: Reports: Coronary Artery Stent Respiratory Surgical History: Reports: None GI Surgical History: Reports: None Male Surgical History: Reports: None Endocrine Surgical History: Reports: None Neurological Surgical History: Reports: None Musculoskeletal Surgical History: Reports: None Oncologic Surgical History: Reports: None Dermatological Surgical History: Reports: None - SUBSTANCE USE Tobacco Use Status *Q: Never Tobacco User Recreational Drug Use History: No - HOME MEDS Home Medications: Home Meds metFORMIN [Glucophage] 1,000 mg PO BID 03/12/15 [History] Cetirizine [ZyrTEC] 10 mg PO DAILY 06/01/20 [History] Cholecalciferol (Vitamin D3) [Vitamin D3] 2,000 unit PO DAILY 06/01/20 [History] Folic Acid 1 mg PO QAM 06/01/20 [History] Furosemide 40 mg PO QAM 06/01/20 [History] Glucosam/Chond-MSM 2/C/D3/Wil [Gcemgyeukc-Ihojzqrfvuy-LQB] 1 each PO DAILY 0 06/01/20 [History] Methotrexate 6 tab PO WEEKLY 06/01/20 [History] Multivitamin 1 each PO DAILY 06/01/20 [History] Nilotinib HCl [Tasigna] 400 mg PO BID 06/01/20 [History] Ticagrelor [Brilinta] 90 mg PO BID 06/01/20 [History] atorvaSTATin [Lipitor] 20 mg PO BEDTIME 06/01/20 [History] lisinopriL [Lisinopril] 10 mg PO QAM 06/01/20 [History] Empagliflozin [Jardiance] 10 mg PO DAILY 30 Days #30 tablet 06/23/20 [Rx] Dulaglutide [Trulicity] 1.5 mg SQ WEEKLY 10/27/20 [History] - CURRENT (IN HOUSE) MEDS Current Meds: Current Medications Lactated Ringer's (Ringers, Lactated) 1,000 mls @ 125 mls/hr IV ASDIRECTED [facility] Last Admin: 11/02/20 06:45 Dose: 125 mls/hr Documented by: Discontinued Medications Lactated Ringer's (Ringers, Lactated) 1,000 mls @ 125 mls/hr IV ASDIRECTED [facility] Midazolam HCl (Midazolam 1 Mg/Ml 2 Ml Sdv) Confirm Administered Dose 2 mg .ROUTE .[facility] ONE Stop: 11/02/20 07:21 Propofol (Propofol 200 Mg/20 Ml Sdv) Confirm Administered Dose 600 mg .ROUTE .[facility] ONE Stop: 11/02/20 07:21
--- NOTE | 2020-11-02 08:44 | PCM.POSTAN ---
POST ANESTHESIA ASSESSMENT - MENTAL STATUS Mental Status: Alert, Oriented - VITAL SIGNS Vital Signs: Last Vital Signs Temp 97.0 F 11/02/20 08:31 Pulse 55 L 11/02/20 08:31 Resp 14 11/02/20 08:31 BP 101/63 11/02/20 08:31 Pulse Ox 96 11/02/20 08:31 - RESPIRATORY Respiratory Status: Respiratory Rate WNL, Airway Patent, O2 Saturation Stable - CARDIOVASCULAR CV Status: Pulse Rate WNL, Blood Pressure Stable - GASTROINTESTINAL GI Status: No Symptoms - POST OP HYDRATION Hydration Status: Adequate & Stable
--- NOTE | 2020-11-02 08:44 | PCM48HPAN ---
Post Anesthesia Note - EVALUATION WITHIN 48HRS OF ANESTHETIC Vital Signs in Normal Range: Yes Patient Participated in Evaluation: Yes Respiratory Function Stable: Yes Airway Patent: Yes Cardiovascular Function Stable: Yes Hydration Status Stable: Yes Pain Control Satisfactory: Yes Nausea and Vomiting Control Satisfactory: Yes Mental Status Recovered: Yes Vital Signs: Last Vital Signs Temp 97.0 F 11/02/20 08:31 Pulse 55 L 11/02/20 08:31 Resp 14 11/02/20 08:31 BP 101/63 11/02/20 08:31 Pulse Ox 96 11/02/20 08:31
--- NOTE | 2020-11-02 14:32 | OR ---
SURGEON: ARIANNA LINTON MD DATE OF PROCEDURE: 11/02/2020 PREOPERATIVE DIAGNOSIS: History of colon cancer. POSTOPERATIVE DIAGNOSIS: Small polyp at 15 cm. PROCEDURE PERFORMED: 1. Colonoscopy. 2. Cold biopsy polypectomy. PRIMARY SURGEON: Arianna Linton MD ANESTHESIA: General. EXTENT OF THE COLONOSCOPY: To the cecum. BOWEL PREP: Very good. LIMITATIONS: None. REASON FOR PROCEDURE: The patient is a pleasant 50-year-old gentleman. This will be his first colonoscopy. He denies any blood in the stool. His father had colon cancer at around age 76. PROCEDURE IN DETAIL: Physical exam was performed. The major risks and benefits associated with the procedure were explained to the patient in detail. The patient verbalized understanding and was in agreement with the same. The patient was then connected to the appropriate monitoring devices, and IV was started. EKG, pulse oximetry, blood pressure, and capnography were monitored throughout the entire procedure. Oxygen and sedation were provided by the anesthesiologist. The patient was placed in left lateral decubitus position. Sedation was begun. After adequate sedation was achieved, a digital rectal exam was performed. No rectal masses or polyps felt. Now, a well-lubricated Olympus colonoscope was inserted into the rectum and advanced under direct visualization to the level of the cecum. Cecum was identified by both visual and anatomic landmarks. Photographs were taken of the cecal cap. The terminal ileum was also intubated. The scope was then slowly withdrawn in a circular fashion looking at the color, texture, anatomy, and integrity of mucosa from the cecum to the anal canal. The patient did have some minimal light liquid stool which was suctioned and irrigated out for an excellent look at the mucosa. The patient did have a small polyp at about 15 cm. This was removed with cold biopsy polypectomy, looked to be completely removed and had good hemostasis. Scope was retroflexed in the rectum. Scope was then completely removed and the procedure was terminated. ENDOSCOPIC DIAGNOSIS: Small polyp at 15 cm. RECOMMENDATIONS: Followup colonoscopy will depend on pathology, but will most likely be in five years, sooner if he develops signs or symptoms such as change in bowel habits or blood in the stool. JONATAN / ZBIGNIEW /[id number]
== END 2020-11-02 09:10 | disposition home or self-care (01) ==
LOC: MW.SDS 06:25
PROVIDERS: ATTEND Surgery
DX: Z12.11 Encounter for screening for malignant neoplasm of colon (principal); K63.5 Polyp of colon; I25.2 Old myocardial infarction; E11.9 Type 2 diabetes mellitus without complications; E66.9 Obesity, unspecified; M06.9 Rheumatoid arthritis, unspecified; K21.9 Gastro-esophageal reflux disease without esophagitis; Z95.5 Presence of coronary angioplasty implant and graft; Z80.0 Family history of malignant neoplasm of digestive organs; Z88.8 Allergy status to other drugs, medicaments and biological substances; Z79.899 Other long term (current) drug therapy; Z98.890 Other specified postprocedural states; Z79.84 Long term (current) use of oral hypoglycemic drugs; Z68.35 Body mass index [BMI] 35.0-35.9, adult
CPT/HCPCS: 45380; J2250; J2704; J7120; 00812

== ENCOUNTER 2021-05-01 23:05 | Emergency (ER) | payer OTHER, BC ==
--- NOTE | 2021-05-01 23:12 | EDM.PDOC ---
ED HPI GENERAL MEDICAL PROBLEM - General Stated Complaint: CHEST PAIN, SHORTNESS OF BREATH Time Seen by Provider: 05/01/21 23:10 Source of Information: Reports: Patient History Limitations: Reports: No Limitations - History of Present Illness INITIAL COMMENTS - FREE TEXT/NARRATIVE: 51-year-old male past medical history GERD, CAD, poorly controlled diabetes, CHF presents for chest pain and shortness of breath. Patient states that he has been feeling weak all day but that his chest pain started about an hour ago. He describes it as a tightness and heaviness in his bilateral upper chest left greater than right. It does radiate to his upper back. He states this feels very similar to when he had a heart attack in the summer 2019. He has not had any aspirin today, states he takes Brilinta and is not on daily aspirin. He does note shortness of breath. He denies cough or fever. Denies lower extremity swelling. Chest Pain Score (Numeric/FACES): 7 - Related Data Allergies Allergy/AdvReac Type Severity Reaction Status Date / Time naproxen sodium [From Aleve] Allergy Hives Verified 05/01/21 23:17 Home Meds: Home Meds metFORMIN [Glucophage] 1,000 mg PO BID 03/12/15 [History] Cetirizine [ZyrTEC] 10 mg PO DAILY 06/01/20 [History] Cholecalciferol (Vitamin D3) [Vitamin D3] 2,000 unit PO DAILY 06/01/20 [History] Folic Acid 1 mg PO QAM 06/01/20 [History] Furosemide 40 mg PO QAM 06/01/20 [History] Glucosam/Chond-MSM 2/C/D3/Wil [Beizkbijmw-Ghddtqxnwly-AFC] 1 each PO DAILY 06/01/20 [History] Methotrexate 6 tab PO WEEKLY 06/01/20 [History] Multivitamin 1 each PO DAILY 06/01/20 [History] Nilotinib HCl [Tasigna] 400 mg PO BID 06/01/20 [History] Ticagrelor [Brilinta] 90 mg PO BID 06/01/20 [History] atorvaSTATin [Lipitor] 20 mg PO BEDTIME 06/01/20 [History] lisinopriL [Lisinopril] 10 mg PO QAM 06/01/20 [History] Empagliflozin [Jardiance] 10 mg PO DAILY 30 Days #30 tablet 06/23/20 [Rx] Dulaglutide [Trulicity] 1.5 mg SQ WEEKLY 10/27/20 [History] Past Medical History HEENT History: Reports: Other (See Below) Other HEENT History: uses reading glasses Cardiovascular History: Reports: NC, Stents Other Cardiovascular History: 2 stents placed November 2019 Respiratory History: Reports: None Gastrointestinal History: Reports: GERD Other Gastrointestinal History: gets acid reflux from Chemo med Genitourinary History: Reports: None Musculoskeletal History: Reports: RA Neurological History: Reports: None Psychiatric History: Reports: None Endocrine/Metabolic History: Reports: Diabetes, Type II, Obesity/BMI 30+ Hematologic History: Reports: Anticoagulation Therapy Other Immunologic History: rheumatoid arthritis Oncologic (Cancer) History: Reports: Leukemia, Other (See Below) Other Oncologic History: CML (chronic myeloid Leukemia) Dermatologic History: Reports: None - Infectious Disease History Infectious Disease History: Reports: Chicken Pox, Novel Coronavirus, Shingles - Past Surgical History Head Surgeries/Procedures: Reports: None HEENT Surgical History: Reports: None Cardiovascular Surgical History: Reports: Coronary Artery Stent Respiratory Surgical History: Reports: None GI Surgical History: Reports: None Male Surgical History: Reports: None Endocrine Surgical History: Reports: None Neurological Surgical History: Reports: None Musculoskeletal Surgical History: Reports: None Oncologic Surgical History: Reports: None Dermatological Surgical History: Reports: None Social & Family History - Family History Family Medical History: No Pertinent Family History - Caffeine Use Caffeine Use: Reports: None ED ROS GENERAL - Review of Systems Review Of Systems: Comprehensive ROS is negative, except as noted in HPI. ED EXAM, GENERAL - Physical Exam Exam: See Below Exam Limited By: No Limitations General Appearance: Alert, WD/WN, No Apparent Distress Ears: Hearing Grossly Normal Throat/Mouth: Normal Voice, No Airway Compromise Head: Atraumatic, Normocephalic Respiratory/Chest: No Respiratory Distress, Lungs Clear, Normal Breath Sounds, No Accessory Muscle Use Cardiovascular: Normal Peripheral Pulses, Regular Rate, Rhythm, No Edema Extremities: Normal Inspection Neurological: Alert, Normal Cognition, Normal Gait Psychiatric: Normal Affect, Normal Mood Skin Exam: Warm, Dry, Intact, Normal Color #1 Interpretation EKG Date: 05/01/21 Time: 23:08 Rhythm: NSR Rate (Beats/Min): 105 [place]: Normal P-Wave: Present QRS: Normal ST-T: Normal QT: Normal MS/PQ Interval: 174 Comparison: NA - No Prior EKG EKG Interpretation Comments: unremarkable EKG Course - Vital Signs Last Recorded V/S: Last Vital Signs Temp 98.1 F 05/01/21 23:17 Pulse 104 H 05/02/21 01:17 Resp 16 05/02/21 01:17 BP 110/67 05/02/21 01:17 Pulse Ox 96 05/02/21 01:17 - Orders/Labs/Meds Orders: Active Orders 24 hr Category Date Time Status Cardiac Monitoring [RC] . DIRECTED Care 05/01/21 23:19 Active Pulse Oximetry [RC] ASDIRECTED Care 05/01/21 23:19 Active Saline Lock Insert [OM.PC] Stat Oth 05/01/21 23:19 Ordered Labs: Laboratory Tests 05/01/21 05/01/21 05/01/21 Range/Units 23:20 23:20 23:20 WBC 30.47 H (4.0-11.0) K/uL RBC 5.94 H (4.50-5.90) M/uL Hgb 17.5 H (13.0-17.0) g/dL Hct 49.0 (38.0-50.0) % MCV 82.5 (80.0-98.0) fL MCH 29.5 (27.0-32.0) pg MCHC 35.7 (31.0-37.0) g/dL RDW Std Deviation 44.7 (28.0-62.0) fl RDW Coeff of Wily 15 (11.0-15.0) % Plt Count 153 (150-400) K/uL MPV 10.90 (7.40-12.00) fL Add Manual Diff YES Neutrophils % (Manual) 66 (48.0-80.0) % Band Neutrophils % 4 % Lymphocytes % (Manual) 15 L (16.0-40.0) % Monocytes % (Manual) 9 (0.0-15.0) % Eosinophils % (Manual) 3 (0.0-7.0) % Basophils % (Manual) 1 (0.0-1.5) % Metamyelocytes % 2 % Nucleated RBC % 0.0 /100WBC Absolute Seg Neuts 20.1 H (1.4-5.7) Band Neutrophils # 1.2 Lymphocytes # (Manual) 4.6 H (0.6-2.4) Monocytes # (Manual) 2.7 H (0.0-0.8) Eosinophils # (Manual) 0.9 H (0.0-0.7) Basophils # (Manual) 0.3 H (0.0-0.1) Absolute Metamyelocyte 0.6 Nucleated RBCs # 0 K/uL D-Dimer, Quantitative 0.40 (0.0-0.50) mg/L FEU Sodium 133 L (136-148) mmol/L Potassium 4.1 (3.5-5.1) mmol/L Chloride 98 (98-107) mmol/L Carbon Dioxide 20.4 L (21.0-32.0) mmol/L BUN 36 H (7.0-18.0) mg/dL Creatinine 1.4 H (0.8-1.3) mg/dL Est Cr Clr Drug Dosing 78.67 mL/min Estimated GFR (MDRD) 53.4 ml/min Glucose 315 H (74-106) mg/dL POC Glucose (70-99) mg/dL Calcium 9.0 (8.5-10.1) mg/dL Magnesium 2.0 (1.8-2.4) mg/dL Total Bilirubin 0.6 (0.2-1.0) mg/dL AST 28 (15-37) IU/L ALT 54 (14-63) IU/L Alkaline Phosphatase 104 (46-116) U/L Troponin I < 0.050 (0.000-0.056) ng/mL B-Natriuretic Peptide (<100) PG/ML Total Protein 7.9 (6.4-8.2) g/dL Albumin 4.0 (3.4-5.0) g/dL Globulin 3.9 (2.6-4.0) g/dL Albumin/Globulin Ratio 1.0 (0.9-1.6) Influenza Type A RNA (NEGATIVE) Influenza Type B RNA (NEGATIVE) SARS-CoV-2 RNA ([place]) (NEGATIVE) 05/01/21 05/01/21 05/02/21 Range/Units 23:20 23:20 01:20 WBC (4.0-11.0) K/uL RBC (4.50-5.90) M/uL Hgb (13.0-17.0) g/dL Hct (38.0-50.0) % MCV (80.0-98.0) fL MCH (27.0-32.0) pg MCHC (31.0-37.0) g/dL RDW Std Deviation (28.0-62.0) fl RDW Coeff of Wily (11.0-15.0) % Plt Count (150-400) K/uL MPV (7.40-12.00) fL Add Manual Diff Neutrophils % (Manual) (48.0-80.0) % Band Neutrophils % % Lymphocytes % (Manual) (16.0-40.0) % Monocytes % (Manual) (0.0-15.0) % Eosinophils % (Manual) (0.0-7.0) % Basophils % (Manual) (0.0-1.5) % Metamyelocytes % % Nucleated RBC % /100WBC Absolute Seg Neuts (1.4-5.7) Band Neutrophils # Lymphocytes # (Manual) (0.6-2.4) Monocytes # (Manual) (0.0-0.8) Eosinophils # (Manual) (0.0-0.7) Basophils # (Manual) (0.0-0.1) Absolute Metamyelocyte Nucleated RBCs # K/uL D-Dimer, Quantitative (0.0-0.50) mg/L FEU Sodium (136-148) mmol/L Potassium (3.5-5.1) mmol/L Chloride (98-107) mmol/L Carbon Dioxide (21.0-32.0) mmol/L BUN (7.0-18.0) mg/dL Creatinine (0.8-1.3) mg/dL Est Cr Clr Drug Dosing mL/min Estimated GFR (MDRD) ml/min Glucose (74-106) mg/dL POC Glucose 109 H (70-99) mg/dL Calcium (8.5-10.1) mg/dL Magnesium (1.8-2.4) mg/dL Total Bilirubin (0.2-1.0) mg/dL AST (15-37) IU/L ALT (14-63) IU/L Alkaline Phosphatase (46-116) U/L Troponin I (0.000-0.056) ng/mL B-Natriuretic Peptide 10 (<100) PG/ML Total Protein (6.4-8.2) g/dL Albumin (3.4-5.0) g/dL Globulin (2.6-4.0) g/dL Albumin/Globulin Ratio (0.9-1.6) Influenza Type A RNA NEGATIVE (NEGATIVE) Influenza Type B RNA NEGATIVE (NEGATIVE) SARS-CoV-2 RNA ([place]) NEGATIVE (NEGATIVE) 05/02/21 Range/Units 01:55 WBC (4.0-11.0) K/uL RBC (4.50-5.90) M/uL Hgb (13.0-17.0) g/dL Hct (38.0-50.0) % MCV (80.0-98.0) fL MCH (27.0-32.0) pg MCHC (31.0-37.0) g/dL RDW Std Deviation (28.0-62.0) fl RDW Coeff of Wily (11.0-15.0) % Plt Count (150-400) K/uL MPV (7.40-12.00) fL Add Manual Diff Neutrophils % (Manual) (48.0-80.0) % Band Neutrophils % % Lymphocytes % (Manual) (16.0-40.0) % Monocytes % (Manual) (0.0-15.0) % Eosinophils % (Manual) (0.0-7.0) % Basophils % (Manual) (0.0-1.5) % Metamyelocytes % % Nucleated RBC % /100WBC Absolute Seg Neuts (1.4-5.7) Band Neutrophils # Lymphocytes # (Manual) (0.6-2.4) Monocytes # (Manual) (0.0-0.8) Eosinophils # (Manual) (0.0-0.7) Basophils # (Manual) (0.0-0.1) Absolute Metamyelocyte Nucleated RBCs # K/uL D-Dimer, Quantitative (0.0-0.50) mg/L FEU Sodium (136-148) mmol/L Potassium (3.5-5.1) mmol/L Chloride (98-107) mmol/L Carbon Dioxide (21.0-32.0) mmol/L BUN (7.0-18.0) mg/dL Creatinine (0.8-1.3) mg/dL Est Cr Clr Drug Dosing mL/min Estimated GFR (MDRD) ml/min Glucose (74-106) mg/dL POC Glucose (70-99) mg/dL Calcium (8.5-10.1) mg/dL Magnesium (1.8-2.4) mg/dL Total Bilirubin (0.2-1.0) mg/dL AST (15-37) IU/L ALT (14-63) IU/L Alkaline Phosphatase (46-116) U/L Troponin I < 0.050 (0.000-0.056) ng/mL B-Natriuretic Peptide (<100) PG/ML Total Protein (6.4-8.2) g/dL Albumin (3.4-5.0) g/dL Globulin (2.6-4.0) g/dL Albumin/Globulin Ratio (0.9-1.6) Influenza Type A RNA (NEGATIVE) Influenza Type B RNA (NEGATIVE) SARS-CoV-2 RNA ([place]) (NEGATIVE) Meds: Medications Discontinued Medications Generic Name Dose Route Start Last Admin Trade Name Rosetta PRN Reason Stop Dose Admin Aspirin 324 mg 05/01/21 23:19 05/01/21 23:31 Aspirin 81 Mg Tab.Chew PO 05/01/21 23:20 324 mg ONETIME ONE Administration Sodium Chloride 1,000 mls @ 999 mls/hr 05/01/21 23:19 05/01/21 23:30 Normal Saline IV 05/02/21 00:19 999 mls/hr .Bolus ONE Administration Insulin Human Regular 5 unit 05/02/21 00:22 05/02/21 00:37 Insulin Regular, Human 100 Units/Ml 10 Ml Vial IVPUSH 05/02/21 00:23 0.5 ml ONETIME ONE Administration Protocol - Re-Assessments/Exams Free Text/Narrative Re-Assessment/Exam: 05/02/21 00:16 Patient notes that he is no longer having chest pain on reassessment. Patient seems to demonstrate poor understanding of his underlying health problems. He does state that he is supposed to be on oral chemotherapy for his CML but that he does not take it regularly. He is uncertain what his baseline white blood cell count is. I did not initially give him nitroglycerin as his blood pressures were 90s over 60s, patient does not know his baseline blood pressure. 05/02/21 02:29 Patient's 3-hour repeat troponin is negative. He remains chest pain-free. I had a long discussion with patient and offered observation admission for repeat troponin trending. Patient notes that he has follow-up with his physician early next week and he will call this morning and inform her that he was in the emergency department for chest pain. He would prefer not to stay for observation admission at this time. He agrees to return to the emergency department for return of chest pain or difficulty breathing. Departure - Departure Time of Disposition: 02:30 Disposition: Home, Self-Care 01 Condition: Good Clinical Impression: Chest pain Qualifiers: Chest pain type: unspecified Qualified Code(s): R07.9 - Chest pain, unspecified - Discharge Information Instructions: Nonspecific Chest Pain, Adult Additional Instructions: Your labs showed an elevated white blood cell count, please bring this up with your cancer doctor. Your blood test for blood clots in the lungs was negative. Your cardiac enzymes which is a blood level that we used to check for signs of heart attack were negative. You will need to follow-up with your doctor as soon as possible to discuss your chest pain as unfortunately with blood work alone we cannot rule out your heart as the cause of the pain you experienced this evening. If you have a return of pain in your chest or difficulty breathing then you need to come back to the emergency department for reassessment. The following information is given to patients seen in the emergency department who are being discharged to home. This information is to outline your options for follow-up care. We provide all patients seen in our emergency department with a follow-up referral. The need for follow-up, as well as the timing and circumstances, are variable depending upon the specifics of your emergency department visit. If you don't have a primary care physician on staff, we will provide you with a referral. We always advise you to contact your personal physician following an emergency department visit to inform them of the circumstance of the visit and for follow-up with them and/or the need for any referrals to a consulting specialist. The emergency department will also refer you to a specialist when appropriate. This referral assures that you have the opportunity for follow-up care with a specialist. All of these measure are taken in an effort to provide you with optimal care, which includes your follow-up. Under all circumstances we always encourage you to contact your private physician who remains a resource for coordinating your care. When calling for follow-up care, please make the office aware that this follow-up is from your recent emergency room visit. If for any reason you are refused follow-up, please contact the [facility] Emergency Department at and asked to speak to the emergency department charge nurse. Please follow up with your primary care physician. If you do not have a primary care physician, see below: [facility] [address] [place] [address] [phone] [facility] [address] [place] [address] [facility] [address] [place] [id number] Sepsis Event Note (ED) - Focused Exam Vital Signs: Vital Signs Temp Pulse Resp BP Pulse Ox 05/02/21 01:17 104 H 16 110/67 96 05/02/21 00:13 99 12 104/74 93 L 05/01/21 23:17 98.1 F 100 16 137/72 96 - My Orders Last 24 Hours: My Active Orders 05/01/21 23:19 Cardiac Monitoring [RC] . DIRECTED Pulse Oximetry [RC] ASDIRECTED Saline Lock Insert [OM.PC] Stat - Assessment/Plan Last 24 Hours: My Active Orders 05/01/21 23:19 Cardiac Monitoring [RC] . DIRECTED Pulse Oximetry [RC] ASDIRECTED Saline Lock Insert [OM.PC] Stat
[2021-05-01] MEDS ORDERED: Sodium Chloride 0.9% 1,000 ML IV ONE (23:19)
[2021-05-01] MEDS ORDERED: Aspirin 81 MG Tab.Chew PO ONE (23:19)
--- NOTE | 2021-05-01 23:56 | CR ---
INDICATION: Chest pain TECHNIQUE: Chest radiograph 1 view COMPARISON: 11/23/2019 FINDINGS: Mediastinum: The mediastinum is normal in appearance. The heart silhouette is normal in size and morphology. Lung: Both lungs are unremarkable in appearance. No sign of pleural effusion seen. No pneumothorax is identified. Bone and Soft tissue: Unremarkable for age. IMPRESSION: 1. No acute cardiopulmonary disease is seen. Dictated by: Kenan Obregon MD @ 05/01/2021 23:55:46 (Electronically Signed)
[2021-05-01 23:57] LABS: BLOOD UREA NITROGEN,BUN 36 mg/dL (7.0-18.0); CARBON DIOXIDE,CO2 20.4 mmol/L (21.0-32.0); CHLORIDE,CL 98 mmol/L (98-107); GLUCOSE RANDOM 315 mg/dL (74-106); POTASSIUM,K 4.1 mmol/L (3.5-5.1); SODIUM,NA 133 mmol/L (136-148)
[2021-05-02 00:19] LABS: CORONAVIRUS COVID-19 NAA NEGATIVE (NEGATIVE); INFLUENZA A NAA NEGATIVE (NEGATIVE); INFLUENZA B NAA NEGATIVE (NEGATIVE)
[2021-05-02] MEDS ORDERED: Insulin Regular, Human 100 Units/ML 10 ML Vial IVPUSH ONE (00:22)
[2021-05-02 02:42] VITALS: BP 106/70; PULSE 78
== END 2021-05-02 02:42 | disposition home or self-care (01) ==
LOC: MW.ED 23:05
DX: R07.89 Other chest pain (principal); I25.2 Old myocardial infarction; E11.9 Type 2 diabetes mellitus without complications; E66.9 Obesity, unspecified; Z68.31 Body mass index [BMI] 31.0-31.9, adult; Z88.8 Allergy status to other drugs, medicaments and biological substances; Z79.84 Long term (current) use of oral hypoglycemic drugs; Z79.899 Other long term (current) drug therapy; Z20.822 Contact with and (suspected) exposure to COVID-19
CPT/HCPCS: 0240U; 36415; 71045; 80053; 82947; 83735; 83880; 84484; 85025; 85379; 93005; 99285; A9270; J7030; J1815-GY

== ENCOUNTER 2022-06-01 12:25 | Emergency (ER) | payer OTHER, BC ==
[2022-06-01 13:38] LABS: CARBON DIOXIDE,CO2 23.4 mmol/L (21.0-32.0); POTASSIUM,K 3.8 mmol/L (3.5-5.1)
[2022-06-01 13:59] LABS: CORONAVIRUS COVID-19 NAA NEGATIVE (NEGATIVE); INFLUENZA A NAA NEGATIVE (NEGATIVE); INFLUENZA B NAA NEGATIVE (NEGATIVE)
[2022-06-01 15:28] VITALS: BP 125/69
[2022-06-01 16:36] VITALS: PULSE 82
== END 2022-06-01 16:35 | disposition home or self-care (01) ==
LOC: MW.ED 12:25
DX: R07.89 Other chest pain (principal); E11.9 Type 2 diabetes mellitus without complications; I10 Essential (primary) hypertension; E66.9 Obesity, unspecified; Z68.29 Body mass index [BMI] 29.0-29.9, adult; Z88.8 Allergy status to other drugs, medicaments and biological substances; Z79.84 Long term (current) use of oral hypoglycemic drugs; Z20.822 Contact with and (suspected) exposure to COVID-19
CPT/HCPCS: 0240U; 36415; 71045; 80053; 83735; 84484; 85025; 93005; 99285; 93010; 99284

== ENCOUNTER 2022-12-28 13:24 | Emergency (ER) | payer OTHER ==
[2022-12-28] MEDS ORDERED: Sodium Chloride 0.9% 10 ML Syringe FLUSH PRN (13:34)
[2022-12-28] MEDS ORDERED: Sodium Chloride 0.9% 2.5 ML Syringe FLUSH PRN (13:34)
[2022-12-28 13:50] LABS: BASOPHILS ABSOLUTE AUTO 0.1 K/uL (0.0-0.1); BASOPHILS PERCENT AUTO 0.8 % (0.0-1.5); EOSINOPHILS ABSOLUTE AUTO 0.3 K/uL (0.0-0.7); EOSINOPHILS PERCENT AUTO 2.3 % (0.0-7.0); HEMATOCRIT 49.1 % (38.0-50.0); LYMPHOCYTES ABSOLUTE AUTO 1.8 K/uL (0.6-2.4); LYMPHOCYTES PERCENT AUTO 13.7 % (16.0-40.0); MEAN CORPUSCULAR HGB CONC 34.6 g/dL (31.0-37.0); MEAN CORPUSCULAR VOLUME 83.6 fL (80.0-98.0); MONOCYTES ABSOLUTE AUTO 1.2 K/uL (0.0-0.8); MONOCYTES PERCENT AUTO 9.4 % (0.0-15.0); NEUTROPHILS ABSOLUTE AUTO 9.6 K/uL (1.4-5.7); NEUTROPHILS PERCENT AUTO 73.8 % (48.0-80.0); NRBC ABSOLUTE 0 K/uL; PLATELET COUNT,PLT 247 K/uL (150-400); RED BLOOD CELL COUNT 5.87 M/uL (4.50-5.90); WHITE BLOOD CELL COUNT,WBC 13.03 K/uL (4.0-11.0)
[2022-12-28 14:54] LABS: A/G RATIO 0.9 (0.9-1.6); ALANINE AMINOTRANSFERASE,ALT 43 IU/L (14-63); ALKALINE PHOSPHATASE 120 U/L (46-116); ASPARTATE AMNIOTRANSFERASE,AST 18 IU/L (15-37); BILIRUBIN TOTAL 1.4 mg/dL (0.2-1.0); BLOOD UREA NITROGEN,BUN 19 mg/dL (7.0-18.0); CARBON DIOXIDE,CO2 21.9 mmol/L (21.0-32.0); CHLORIDE,CL 100 mmol/L (98-107); CREATININE 1.2 mg/dL (0.8-1.3); EST CRCL DRUG DOSING (CG) 90.75 mL/min; GLUCOSE RANDOM 260 mg/dL (74-106); MAGNESIUM 1.9 mg/dL (1.8-2.4); POTASSIUM,K 3.9 mmol/L (3.5-5.1); PROTEIN TOTAL,TP 8.4 g/dL (6.4-8.2); SODIUM,NA 134 mmol/L (136-148)
[2022-12-28 15:19] LABS: ESTIMATED GFR 73 mL/min (>60); LIPASE 372 U/L (16-77)
[2022-12-28 16:59] VITALS: BP 102/65; PULSE 91
== END 2022-12-28 16:57 | disposition home or self-care (01) ==
LOC: MW.ED 13:24
DX: R07.9 Chest pain, unspecified (principal); K85.90 Acute pancreatitis without necrosis or infection, unspecified; I25.10 Atherosclerotic heart disease of native coronary artery without angina pectoris; E11.9 Type 2 diabetes mellitus without complications; E78.5 Hyperlipidemia, unspecified; I10 Essential (primary) hypertension; K21.9 Gastro-esophageal reflux disease without esophagitis; E66.9 Obesity, unspecified; Z68.29 Body mass index [BMI] 29.0-29.9, adult; Z88.6 Allergy status to analgesic agent; Z79.02 Long term (current) use of antithrombotics/antiplatelets; Z79.899 Other long term (current) drug therapy; Z79.84 Long term (current) use of oral hypoglycemic drugs; Z86.16 Personal history of COVID-19
CPT/HCPCS: 36415; 71045; 80053; 83690; 83735; 83880; 84484; 85025; 93005; 99285; J3490; 93010; 99283

== ENCOUNTER 2023-12-27 20:44 | Emergency (ER) | payer OTHER ==
[2023-12-27] MEDS: Sodium Chloride 0.9% 2.5 ML Syringe FLUSH PRN (21:51)
[2023-12-27] MEDS: Sodium Chloride 0.9% 10 ML Syringe FLUSH PRN (21:51)
[2023-12-27] MEDS: Sodium Chloride 0.9% 1,000 ML IV ONE (21:52)
[2023-12-27 22:10] LABS: HEMATOCRIT 45.3 % (42.0-52.0); MEAN CORPUSCULAR HEMOGLOBIN 28.6 pg (28.0-32.0); MEAN CORPUSCULAR HGB CONC 35.3 g/dL (32.0-36.0); MEAN CORPUSCULAR VOLUME 80.9 fL (83.0-99.0); MEAN PLATELET VOLUME 9.7 fL (9.4-12.4); PLATELET COUNT,PLT 253 K/uL (150-400); WHITE BLOOD CELL COUNT,WBC 14.01 K/uL (3.9-11.3)
[2023-12-27 22:30] LABS: A/G RATIO 0.8 (0.9-1.6); BILIRUBIN TOTAL 0.4 mg/dL (0.2-1.0); CALCIUM 8.8 mg/dL (8.5-10.1); CARBON DIOXIDE,CO2 22.6 mmol/L (21.0-32.0); CREATININE 1.3 mg/dL (0.8-1.3); EST CRCL DRUG DOSING (CG) 82.82 mL/min; POTASSIUM,K 3.3 mmol/L (3.5-5.1)
[2023-12-27] MEDS: Iopamidol 755 MG/ML 500 ML Multipack Bottle IVPUSH ONE (23:04)
[2023-12-27 23:13] LABS: EOSINOPHILS ABSOLUTE MAN 1.54 K/uL (0.00-0.45); EOSINOPHILS PERCENT MAN 11 % (0-6); MONOCYTES ABSOLUTE MAN 1.54 K/uL (0.00-0.80); MONOCYTES PERCENT MAN 11 % (0-8)
[2023-12-27 23:15] LABS: LYMPHOCYTES ABSOLUTE MAN 2.52 K/uL (1.00-4.80); LYMPHOCYTES PERCENT MAN 18 % (24-44); SEG NEUTROPHILS ABSOLUTE MAN 8.41 K/uL (1.80-7.70); SEG NEUTROPHILS PERCENT MAN 60 % (41-71)
[2023-12-27] MEDS: Ciprofloxacin 500 MG Tab PO ONE (23:52)
[2023-12-27] MEDS: metroNIDAZOLE 250 MG Tab PO ONE (23:52)
[2023-12-27 23:58] VITALS: BP 100/60; PULSE 72
== END 2023-12-27 23:57 | disposition home or self-care (01) ==
LOC: MW.ED 20:44
DX: R19.7 Diarrhea, unspecified (principal); K62.5 Hemorrhage of anus and rectum; E78.00 Pure hypercholesterolemia, unspecified; I10 Essential (primary) hypertension; I25.2 Old myocardial infarction; K21.9 Gastro-esophageal reflux disease without esophagitis; E11.9 Type 2 diabetes mellitus without complications; E66.9 Obesity, unspecified; Z68.30 Body mass index [BMI] 30.0-30.9, adult; Z95.5 Presence of coronary angioplasty implant and graft; Z79.84 Long term (current) use of oral hypoglycemic drugs; Z79.899 Other long term (current) drug therapy; Z88.6 Allergy status to analgesic agent
CPT/HCPCS: 36415; 74177; 80053; 85025; 87635; 96360; 99284; A9270; J3490; J7030; Q9967; U0002

== ENCOUNTER 2023-12-31 15:45 | Emergency (ER) | payer OTHER ==
[2023-12-31] MEDS: Sodium Chloride 0.9% 1,000 ML IV ONE (17:41)
[2023-12-31] MEDS: Sodium Chloride 0.9% 10 ML Syringe FLUSH PRN (17:43)
[2023-12-31] MEDS: Sodium Chloride 0.9% 2.5 ML Syringe FLUSH PRN (17:44)
[2023-12-31 17:47] LABS: HEMATOCRIT 55.3 % (42.0-52.0); HEMOGLOBIN 19.6 g/dL (14.0-18.0); MEAN CORPUSCULAR HEMOGLOBIN 28.2 pg (28.0-32.0); MEAN CORPUSCULAR HGB CONC 35.4 g/dL (32.0-36.0); MEAN CORPUSCULAR VOLUME 79.7 fL (83.0-99.0); MEAN PLATELET VOLUME 8.9 fL (9.4-12.4); PLATELET COUNT,PLT 326 K/uL (150-400); RED BLOOD CELL COUNT 6.94 M/uL (4.52-5.90)
[2023-12-31 18:18] LABS: A/G RATIO 0.7 (0.9-1.6); ALANINE AMINOTRANSFERASE,ALT 29 IU/L (14-63); ALBUMIN 3.3 g/dL (3.4-5.0); ALKALINE PHOSPHATASE 134 U/L (46-116); ASPARTATE AMNIOTRANSFERASE,AST 22 IU/L (15-37); BILIRUBIN TOTAL 0.5 mg/dL (0.2-1.0); BLOOD UREA NITROGEN,BUN 15 mg/dL (7.0-18.0); CALCIUM 9.2 mg/dL (8.5-10.1); CARBON DIOXIDE,CO2 21.1 mmol/L (21.0-32.0); CHLORIDE,CL 101 mmol/L (98-107); CREATININE 1.4 mg/dL (0.8-1.3); GLUCOSE RANDOM 296 mg/dL (74-106); LIPASE 45 U/L (16-77); POTASSIUM,K 3.5 mmol/L (3.5-5.1); PROTEIN TOTAL,TP 7.8 g/dL (6.4-8.2); SODIUM,NA 136 mmol/L (136-148)
[2023-12-31 18:20] LABS: ESTIMATED GFR 60 mL/min (>60)
[2023-12-31 19:11] LABS: EOSINOPHILS PERCENT MAN 11 % (0-6); LYMPHOCYTES ABSOLUTE MAN 3.54 K/uL (1.00-4.80); LYMPHOCYTES PERCENT MAN 15 % (24-44); MONOCYTES ABSOLUTE MAN 1.89 K/uL (0.00-0.80); MONOCYTES PERCENT MAN 8 % (0-8); SEG NEUTROPHILS ABSOLUTE MAN 15.34 K/uL (1.80-7.70); SEG NEUTROPHILS PERCENT MAN 65 % (41-71)
[2023-12-31 19:12] LABS: METAMYELOCYTE ABSOLUTE MAN 0.24; METAMYELOCYTE PERCENT MAN 1 %
[2023-12-31 20:32] VITALS: BP 100/79; PULSE 100
== END 2023-12-31 20:12 | disposition home or self-care (01) ==
LOC: MW.ED 15:45
DX: E86.0 Dehydration (principal); C92.10 Chronic myeloid leukemia, BCR/ABL-positive, not having achieved remission; I10 Essential (primary) hypertension; I25.2 Old myocardial infarction; E78.00 Pure hypercholesterolemia, unspecified; E11.9 Type 2 diabetes mellitus without complications; E66.9 Obesity, unspecified; Z95.1 Presence of aortocoronary bypass graft; Z79.899 Other long term (current) drug therapy; Z79.84 Long term (current) use of oral hypoglycemic drugs; Z88.6 Allergy status to analgesic agent; Z75.8 Other problems related to medical facilities and other health care
CPT/HCPCS: 36415; 80053; 83690; 84484; 85025; 93005; 93010; 96360; 99285; 99285-25; J3490; J7030

== ENCOUNTER 2024-03-21 05:48 | Emergency (ER) | payer OTHER ==
[2024-03-21] MEDS ORDERED: Sodium Chloride 0.9% 10 ML Syringe FLUSH PRN (05:53)
[2024-03-21 06:17] LABS: BASOPHILS ABSOLUTE AUTO 0.17 K/uL (0.00-0.20); BASOPHILS PERCENT AUTO 1.7 % (0.0-1.0); EOSINOPHILS ABSOLUTE AUTO 0.29 K/uL (0.00-0.45); EOSINOPHILS PERCENT AUTO 2.9 % (0.0-6.0); HEMATOCRIT 51.1 % (42.0-52.0); HEMOGLOBIN 17.7 g/dL (14.0-18.0); IMMATURE GRAN ABSOLUTE AUTO 0.03 K/uL (0.00-0.05); IMMATURE GRAN PERCENT AUTO 0.3 % (0.0-0.4); LYMPHOCYTES ABSOLUTE AUTO 2.67 K/uL (1.00-4.80); LYMPHOCYTES PERCENT AUTO 26.8 % (24.0-44.0); MEAN CORPUSCULAR HEMOGLOBIN 29.4 pg (28.0-32.0); MEAN CORPUSCULAR HGB CONC 34.6 g/dL (32.0-36.0); MEAN CORPUSCULAR VOLUME 84.9 fL (83.0-99.0); MEAN PLATELET VOLUME 9.4 fL (9.4-12.4); MONOCYTES ABSOLUTE AUTO 0.86 K/uL (0.00-0.80); MONOCYTES PERCENT AUTO 8.6 % (0.0-8.0); NEUTROPHILS ABSOLUTE AUTO 5.93 K/uL (1.80-7.70); NEUTROPHILS PERCENT AUTO 59.7 % (41.0-71.0); PLATELET COUNT,PLT 238 K/uL (150-400); RED BLOOD CELL COUNT 6.02 M/uL (4.52-5.90); WHITE BLOOD CELL COUNT,WBC 9.95 K/uL (3.9-11.3)
[2024-03-21 06:38] LABS: D-DIMER QUANTITATIVE 0.3 mg/L FEU (0.00-0.50); INR 1.1 (0.86-1.11)
[2024-03-21 07:09] LABS: A/G RATIO 0.9 (0.9-1.6); ALANINE AMINOTRANSFERASE,ALT 41 IU/L (14-63); ALBUMIN 3.5 g/dL (3.4-5.0); ALKALINE PHOSPHATASE 64 U/L (46-116); ASPARTATE AMNIOTRANSFERASE,AST 32 IU/L (15-37); BILIRUBIN TOTAL 0.8 mg/dL (0.2-1.0); BLOOD UREA NITROGEN,BUN 17 mg/dL (7.0-18.0); CALCIUM 8.9 mg/dL (8.5-10.1); CHLORIDE,CL 105 mmol/L (98-107); CREATININE 1.4 mg/dL (0.8-1.3); GLUCOSE RANDOM 270 mg/dL (74-106); LIPASE 82 U/L (16-77); MAGNESIUM 1.7 mg/dL (1.8-2.4); POTASSIUM,K 3.6 mmol/L (3.5-5.1); PRO B-TYPE NATRIUR PEPT,BNPPRO 88 pg/mL (0-125); PROTEIN TOTAL,TP 7.2 g/dL (6.4-8.2); SODIUM,NA 138 mmol/L (136-148)
[2024-03-21 07:11] LABS: ESTIMATED GFR 60 mL/min (>60)
[2024-03-21 07:32] LABS: HEMOGLOBIN A1C 6.9 %
[2024-03-21] MEDS: Magnesium Sulfate/Water Premix 2 GM in Premix Bag 1 BAG IV ONE (07:33)
[2024-03-21] MEDS: Potassium Chloride 20 MEQ Tab.ER PO ONE (08:36)
[2024-03-21 09:25] VITALS: BP 112/73; PULSE 103
== END 2024-03-21 09:26 | disposition home or self-care (01) ==
LOC: MW.ED 05:48
DX: N17.9 Acute kidney failure, unspecified (principal); E83.42 Hypomagnesemia; R00.2 Palpitations; R42 Dizziness and giddiness; I25.10 Atherosclerotic heart disease of native coronary artery without angina pectoris; I25.2 Old myocardial infarction; E78.00 Pure hypercholesterolemia, unspecified; K21.9 Gastro-esophageal reflux disease without esophagitis; E11.9 Type 2 diabetes mellitus without complications; E66.9 Obesity, unspecified; Z95.5 Presence of coronary angioplasty implant and graft; Z88.8 Allergy status to other drugs, medicaments and biological substances; Z79.84 Long term (current) use of oral hypoglycemic drugs; Z79.899 Other long term (current) drug therapy; Z68.29 Body mass index [BMI] 29.0-29.9, adult
CPT/HCPCS: 36415; 71045; 80053; 83036; 83690; 83735; 83880; 84484; 85025; 85379; 85610; 93005; 96365; 99285; A9270; J3475

== ENCOUNTER 2024-05-18 12:06 | Emergency (ER) | payer OTHER ==
[2024-05-18] MEDS: Sodium Chloride 0.9% 1,000 ML IV ONE ×2 (12:28→13:20)
[2024-05-18] MEDS: Aspirin 81 MG Tab.Chew PO ONE (12:28)
[2024-05-18 12:34] LABS: BASOPHILS ABSOLUTE AUTO 0.17 K/uL (0.00-0.20); BASOPHILS PERCENT AUTO 1.6 % (0.0-1.0); EOSINOPHILS ABSOLUTE AUTO 0.21 K/uL (0.00-0.45); EOSINOPHILS PERCENT AUTO 1.9 % (0.0-6.0); HEMATOCRIT 54.3 % (42.0-52.0); HEMOGLOBIN 18.7 g/dL (14.0-18.0); IMMATURE GRAN ABSOLUTE AUTO 0.05 K/uL (0.00-0.05); IMMATURE GRAN PERCENT AUTO 0.5 % (0.0-0.4); LYMPHOCYTES ABSOLUTE AUTO 2.83 K/uL (1.00-4.80); LYMPHOCYTES PERCENT AUTO 26.1 % (24.0-44.0); MEAN CORPUSCULAR HEMOGLOBIN 28.8 pg (28.0-32.0); MEAN CORPUSCULAR HGB CONC 34.4 g/dL (32.0-36.0); MEAN CORPUSCULAR VOLUME 83.5 fL (83.0-99.0); MEAN PLATELET VOLUME 9.3 fL (9.4-12.4); MONOCYTES ABSOLUTE AUTO 0.96 K/uL (0.00-0.80); MONOCYTES PERCENT AUTO 8.9 % (0.0-8.0); NEUTROPHILS ABSOLUTE AUTO 6.61 K/uL (1.80-7.70); PLATELET COUNT,PLT 252 K/uL (150-400); WHITE BLOOD CELL COUNT,WBC 10.83 K/uL (3.9-11.3)
[2024-05-18 12:53] LABS: A/G RATIO 0.9 (0.9-1.6); ALBUMIN 3.7 g/dL (3.4-5.0); BILIRUBIN TOTAL 0.5 mg/dL (0.2-1.0); CALCIUM 9.3 mg/dL (8.5-10.1); CARBON DIOXIDE,CO2 27.1 mmol/L (21.0-32.0); CREATININE 1.1 mg/dL (0.8-1.3); EST CRCL DRUG DOSING (CG) 96.75 mL/min; POTASSIUM,K 4.4 mmol/L (3.5-5.1); TSH ULTRASENSITIVE 1.11 uIU/mL (0.36-3.74)
[2024-05-18 13:00] LABS: D-DIMER QUANTITATIVE 0.33 mg/L FEU (0.00-0.50); INR 1.11 (0.86-1.11); PTT,PARTIAL THROMBOPLSTIN TIME 29.3 SEC (23.9-30.7)
[2024-05-18 13:39] LABS: APPEARANCE,URINE CLEAR; BILIRUBIN,URINE NEGATIVE (NEGATIVE); COLOR,URINE YELLOW; GLUCOSE,URINE >=1000 mg/dL (NEGATIVE); KETONES,URINE NEGATIVE (NEGATIVE); LEUKOCYTE ESTERASE,URINE NEGATIVE (NEGATIVE); NITRITE,URINE NEGATIVE (NEGATIVE); OCCULT BLOOD,URINE NEGATIVE (NEGATIVE); PROTEIN,URINE NEGATIVE (NEGATIVE); UROBILINOGEN,URINE 0.2 EU/dL (<2.0)
[2024-05-18] MEDS: Adenosine 6 MG/2 ML SDV IVPUSH ONE ×2 (16:50→17:29)
[2024-05-18] MEDS: Metoprolol Tartrate 50 MG Tab PO ONE (17:49)
[2024-05-18] MEDS: Metoprolol Tartrate 5 MG/5 ML SDV IVPUSH ONE (17:50)
[2024-05-18] MEDS: Apixaban 5 MG Tab PO ONE (17:56)
[2024-05-18] MEDS: Diltiazem 25 MG/5 ML SDV IVPUSH ONE (17:57)
[2024-05-18] MEDS: Digoxin 500 MCG/2 ML Amp IVPUSH ONE (20:58)
[2024-05-18 21:08] VITALS: PULSE 134
[2024-05-18 21:28] VITALS: BP 98/61
== END 2024-05-18 21:53 | disposition home or self-care (01) ==
LOC: MW.ED 12:06
DX: I48.92 Unspecified atrial flutter (principal); Z75.8 Other problems related to medical facilities and other health care; I10 Essential (primary) hypertension; E78.00 Pure hypercholesterolemia, unspecified; K21.9 Gastro-esophageal reflux disease without esophagitis; E11.9 Type 2 diabetes mellitus without complications; E66.9 Obesity, unspecified; Z79.899 Other long term (current) drug therapy; Z79.84 Long term (current) use of oral hypoglycemic drugs
CPT/HCPCS: 36415; 71046; 80053; 81003; 83690; 83735; 84443; 84484; 85025; 85379; 85610; 85730; 87428; 93005; 96361; 96374; 96375; 99285; A9270; J0153; J1160; J3490; J7030; 93010; 99284

== ENCOUNTER 2025-03-17 14:03 | Emergency (ER) | payer OTHER ==
[2025-03-17] MEDS ORDERED: Sodium Chloride 0.9% 2.5 ML Syringe FLUSH PRN (14:18)
[2025-03-17] MEDS ORDERED: Sodium Chloride 0.9% 10 ML Syringe FLUSH PRN (14:18)
[2025-03-17] MEDS: Alum Hydrox/Mag Hydrox/Simeth 15 ML, Metoclopramide 5 MG, Lidocaine 2% 5 ML PO ONE (14:20)
[2025-03-17 14:49] LABS: BASOPHILS ABSOLUTE AUTO 0.14 K/uL (0.00-0.20); BASOPHILS PERCENT AUTO 1.2 % (0.0-1.0); EOSINOPHILS ABSOLUTE AUTO 0.16 K/uL (0.00-0.45); EOSINOPHILS PERCENT AUTO 1.4 % (0.0-6.0); IMMATURE GRAN ABSOLUTE AUTO 0.03 K/uL (0.00-0.05); IMMATURE GRAN PERCENT AUTO 0.3 % (0.0-0.4); LYMPHOCYTES ABSOLUTE AUTO 2.78 K/uL (1.00-4.80); LYMPHOCYTES PERCENT AUTO 24.2 % (24.0-44.0); MEAN PLATELET VOLUME 9.5 fL (9.4-12.4); MONOCYTES ABSOLUTE AUTO 1.28 K/uL (0.00-0.80); MONOCYTES PERCENT AUTO 11.1 % (0.0-8.0); NEUTROPHILS ABSOLUTE AUTO 7.10 K/uL (1.80-7.70); NEUTROPHILS PERCENT AUTO 61.8 % (41.0-71.0); NRBC ABSOLUTE 0.00 K/uL (0.00-0.02); NRBC PERCENT 0.0 /100WBC (0.0-0.2); PLATELET COUNT,PLT 242 K/uL (150-400); RED BLOOD CELL COUNT 6.48 M/uL (4.52-5.90); WHITE BLOOD CELL COUNT,WBC 11.49 K/uL (3.9-11.3)
[2025-03-17 14:59] LABS: INR 1.11 (0.86-1.11)
[2025-03-17 15:21] LABS: A/G RATIO 0.9 (0.9-1.6); ALANINE AMINOTRANSFERASE,ALT 46.0 IU/L (14-63); ASPARTATE AMNIOTRANSFERASE,AST 38.0 IU/L (15-37); BILIRUBIN TOTAL 0.6 mg/dL (0.2-1.0); BLOOD UREA NITROGEN,BUN 16.0 mg/dL (7.0-18.0); CARBON DIOXIDE,CO2 20.4 mmol/L (21.0-32.0); CHLORIDE,CL 105.0 mmol/L (98-107); CREATININE 1.5 mg/dL (0.8-1.3); EST CRCL DRUG DOSING (CG) 70.95 mL/min; GLUCOSE RANDOM 348.0 mg/dL (74-106); POTASSIUM,K 4.0 mmol/L (3.5-5.1); PRO B-TYPE NATRIUR PEPT,BNPPRO 105.0 pg/mL (0-125); PROTEIN TOTAL,TP 7.6 g/dL (6.4-8.2); SODIUM,NA 139.0 mmol/L (136-148)
[2025-03-17 15:27] LABS: ESTIMATED GFR 55.0 mL/min (>60)
[2025-03-17 18:23] VITALS: BP 113/80; PULSE 89
== END 2025-03-17 18:29 | disposition home or self-care (01) ==
LOC: MW.ED 14:03
DX: R42 Dizziness and giddiness (principal); K21.9 Gastro-esophageal reflux disease without esophagitis; E66.9 Obesity, unspecified; E11.9 Type 2 diabetes mellitus without complications; I10 Essential (primary) hypertension; I25.2 Old myocardial infarction; E78.00 Pure hypercholesterolemia, unspecified; Z95.5 Presence of coronary angioplasty implant and graft; Z79.84 Long term (current) use of oral hypoglycemic drugs; Z79.899 Other long term (current) drug therapy; Z79.01 Long term (current) use of anticoagulants; Z88.8 Allergy status to other drugs, medicaments and biological substances; Z75.3 Unavailability and inaccessibility of health-care facilities; Z68.30 Body mass index [BMI] 30.0-30.9, adult
CPT/HCPCS: 36415; 70450; 71045; 80053; 82947; 83690; 83735; 83880; 84484; 85025; 85610; 93005; 96360; 99284; A9270; J3490; J7030; 93010; 99283